=== PATIENT | female | born 1945 | race Caucasian/White ===

== ENCOUNTER → 2016-08-30 | Outpatient (REF) | payer MEDICARE, OTHER ==
[2016-08-30 10:29] LABS: MEAN CORPUSCULAR HEMOGLOBIN 31.6 pg (27.0-33.0); MEAN CORPUSCULAR HGB CONC 34.5 g/dl (32.0-36.5); MEAN CORPUSCULAR VOLUME 91.5 fl (80.0-96.0); RED CELL DISTRIBUTION WIDTH 12.1 % (11.5-14.5)
[2016-08-30 10:50] LABS: ALBUMIN 3.9 GM/DL (3.2-5.2); ALBUMIN/GLOBULIN RATIO 1.44 (1.00-1.93); ALKALINE PHOSPHATASE 95 U/L (45-117); ALT/SGPT 31 U/L (12-78); ANION GAP 7 MEQ/L (8-16); AST/SGOT 19 U/L (15-37); BILIRUBIN,TOTAL 1.3 MG/DL (0.2-1.0); BLOOD UREA NITROGEN 15 MG/DL (7-18); CALCIUM LEVEL 8.8 MG/DL (8.8-10.2); CARBON DIOXIDE LEVEL 29 MEQ/L (21-32); CHLORIDE LEVEL 107 MEQ/L (98-107); CHOLESTEROL LEVEL 168 MG/DL (<200); CREATININE FOR GFR 0.72 MG/DL (0.55-1.02); GLOMERULAR FILTRATION RATE > 60.0 (>39); GLUCOSE, FASTING 107 MG/DL (83-110); POTASSIUM SERUM 3.7 MEQ/L (3.5-5.1); SODIUM LEVEL 143 MEQ/L (136-145); TOTAL PROTEIN 6.6 GM/DL (6.4-8.2); TRIGLYCERIDES LEVEL 131 MG/DL (<150)
== END ==
LOC: M LABDRAW1 07:45
PROVIDERS: ATTEND Internal Medicine
DX: Z79.899 Other long term (current) drug therapy (principal); R73.01 Impaired fasting glucose; E78.00 Pure hypercholesterolemia, unspecified

== ENCOUNTER → 2016-10-16 | Outpatient (REF) | payer MEDICARE, OTHER ==
[~2016-10-16] MED LIST: ALPR2TAB3 PO; ESTR1TAB PO; IRBE150T12 PO; LEVE250T5 PO; RISP0.253 PO; ROZE8TAB16 PO; SERT50TA PO
== END ==
LOC: M SFHCPLAZ 15:41
PROVIDERS: ATTEND Nurse Practitioner Adult Health
DX: Z01.419 Encounter for gynecological examination (general) (routine) without abnormal findings (principal); N94.89 Other specified conditions associated with female genital organs and menstrual cycle; Z80.49 Family history of malignant neoplasm of other genital organs; Z80.0 Family history of malignant neoplasm of digestive organs
CPT/HCPCS: 88108; G0123; G0463

== ENCOUNTER → 2017-02-12 | Outpatient (REF) | payer MEDICARE, OTHER | LOC: M LAB REF 12:22 | PROVIDERS: ATTEND Surgery | DX: C44.320 Squamous cell carcinoma of skin of unspecified parts of face (principal) ==

== ENCOUNTER → 2017-09-02 | Outpatient (REF) | payer MEDICARE, OTHER ==
[2017-09-02 14:03] LABS: HEMATOCRIT 39.1 % (36.0-47.0); HEMOGLOBIN 13.4 g/dl (12.0-15.5); MEAN CORPUSCULAR HEMOGLOBIN 30.7 pg (27.0-33.0); MEAN CORPUSCULAR HGB CONC 34.3 g/dl (32.0-36.5); MEAN CORPUSCULAR VOLUME 89.5 fl (80.0-96.0); PLATELET COUNT, AUTOMATED 136 10^3/uL (150-450); RED BLOOD COUNT 4.37 10^6/uL (4.00-5.40); RED CELL DISTRIBUTION WIDTH 11.8 % (11.5-14.5); WHITE BLOOD COUNT 3.8 10^3/uL (4.0-10.0)
[2017-09-02 14:12] LABS: ALBUMIN 3.8 GM/DL (3.2-5.2); ALBUMIN/GLOBULIN RATIO 1.31 (1.00-1.93); ALKALINE PHOSPHATASE 121 U/L (45-117); ALT/SGPT 45 U/L (12-78); ANION GAP 7 MEQ/L (8-16); AST/SGOT 32 U/L (7-37); BILIRUBIN,TOTAL 0.8 MG/DL (0.2-1.0); BLOOD UREA NITROGEN 14 MG/DL (7-18); CALCIUM LEVEL 9.1 MG/DL (8.8-10.2); CARBON DIOXIDE LEVEL 26 MEQ/L (21-32); CHLORIDE LEVEL 110 MEQ/L (98-107); CHOLESTEROL LEVEL 179 MG/DL (<200); CHOLESTEROL RISK RATIO 3.033 (<5); CREATININE FOR GFR 0.68 MG/DL (0.55-1.30); GLOMERULAR FILTRATION RATE > 60.0 (>39); GLUCOSE, FASTING 133 MG/DL (70-100); HDL CHOLESTEROL 59 MG/DL (>40); NON-HDL-C 120 MG/DL; POTASSIUM SERUM 4.1 MEQ/L (3.5-5.1); SODIUM LEVEL 143 MEQ/L (136-145); TOTAL PROTEIN 6.7 GM/DL (6.4-8.2); TRIGLYCERIDES LEVEL 105 MG/DL (<150)
[2017-09-02 14:57] LABS: ESTIMATED AVERAGE GLUCOSE 128 MG/DL (60-110); HEMOGLOBIN A1c 6.1 %
== END ==
LOC: M SFHCPLAZ 07:55
DX: E78.00 Pure hypercholesterolemia, unspecified (principal); R73.01 Impaired fasting glucose
CPT/HCPCS: 80053

== ENCOUNTER 2017-10-28 14:55 | Emergency (ER) | payer MEDICARE, OTHER ==
[2017-10-28 17:26] LABS: HEMATOCRIT 38.3 % (36.0-47.0); HEMOGLOBIN 13.2 g/dl (12.0-15.5); MEAN CORPUSCULAR HEMOGLOBIN 30.7 pg (27.0-33.0); MEAN CORPUSCULAR HGB CONC 34.5 g/dl (32.0-36.5); MEAN CORPUSCULAR VOLUME 89.1 fl (80.0-96.0); PLATELET COUNT, AUTOMATED 135 10^3/uL (150-450); RED CELL DISTRIBUTION WIDTH 11.9 % (11.5-14.5)
[2017-10-28 17:53] LABS: ALBUMIN 3.9 GM/DL (3.2-5.2); ALBUMIN/GLOBULIN RATIO 1.56 (1.00-1.93); ALKALINE PHOSPHATASE 109 U/L (45-117); ALT/SGPT 36 U/L (12-78); ANION GAP 8 MEQ/L (8-16); AST/SGOT 20 U/L (7-37); BLOOD UREA NITROGEN 16 MG/DL (7-18); CALCIUM LEVEL 8.5 MG/DL (8.8-10.2); CARBON DIOXIDE LEVEL 26 MEQ/L (21-32); CHLORIDE LEVEL 111 MEQ/L (98-107); CK-MB VALUE MASS < 1.0 NG/ML (<3.6); CPK CREATINE PHOSPHOKINASE 75 U/L (26-192); CREATININE FOR GFR 0.67 MG/DL (0.55-1.30); GLOMERULAR FILTRATION RATE > 60.0 (>39); GLUCOSE, FASTING 91 MG/DL (70-100); MB/CK RELATIVE INDEX 1.33 (< OR =4); POTASSIUM SERUM 3.6 MEQ/L (3.5-5.1); SODIUM LEVEL 145 MEQ/L (136-145); TOTAL PROTEIN 6.4 GM/DL (6.4-8.2); TROPONIN I < 0.02 NG/ML (< 0.10)
[2017-10-31 00:09] LABS: Lyme Disease IgG/IgM Antibodie <0.91 ISR (0.00-0.90); Lyme Disease IgM Ab Quantitati <0.80 index (0.00-0.79)
== END 2017-10-28 18:16 | disposition home or self-care (01) ==
LOC: M ED 14:55
DX: R20.9 Unspecified disturbances of skin sensation (principal); R73.03 Prediabetes; E78.5 Hyperlipidemia, unspecified; J30.9 Allergic rhinitis, unspecified; Z91.041 Radiographic dye allergy status; Z88.8 Allergy status to other drugs, medicaments and biological substances; Z79.899 Other long term (current) drug therapy
CPT/HCPCS: 70450

== ENCOUNTER 2018-04-23 07:52 | Day surgery (SDC) | payer MEDICARE, OTHER ==
[~2018-04-23] VITALS: Ht 165.1 cm; Wt 74.4 kg
[~2018-04-23 07:52] MED LIST changes: +ALLE180T33 PO; +ATOR1TAB21 PO; +CALC1TAB26 PO; +CETI10TA PO; +ERYTHROMYCIN OPHTH OINT As Ordered ONE; +FLUTISP PO; +LIDOCAINE 2% W/EPIN INJ 20ML **PRES FREE As Ordered ONE; +LIDOCAINE 3.5 % 1ML OPHTH TOPICAL GEL OU ONE; +POVIDONE-IODINE 5% OPHTH PREP SOL 30ML As Ordered ONE
[2018-04-23] MEDS ORDERED: LIDOCAINE 2% INJ 100 MG/5 ML SDV (FOR ANES.) As Ordered ONE (08:23)
[2018-04-23] MEDS ORDERED: PROPOFOL 200 MG/20 ML VIAL As Ordered ONE (08:23)
[2018-04-23] MEDS ORDERED: MIDAZOLAM INJ 2 MG/2 ML VIAL (J2250) As Ordered ONE (08:24)
[2018-04-23] MEDS ORDERED: fentaNYL 100 MCG/2 ML INJECTION (J3010) As Ordered ONE (08:24)
[2018-04-23] MEDS ORDERED: MAXITROL OPHTH OINT 3.5 GM As Ordered ONE ×2 (09:41→10:29)
[2018-04-23] MEDS ORDERED: LR 1,000 ML IV SCH (10:15)
[2018-04-23] MEDS ORDERED: PERCOCET 5MG/325MG TAB PO PRN (10:15)
[2018-04-23 10:25] VITALS: BP 130/60
--- NOTE | 2018-04-30 23:17 | RO ---
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 Status post excision of lesion. PROCEDURE: Excisional biopsy of superior conjunctiva right eye. SURGEON: Anatoly Davalos Jr., DO MARINE WATER TENDER: None. ANESTHESIA: 2% lidocaine with epinephrine and sedation monitoring by anesthesia. INDICATION: Growth of melanotic lesion. SPECIMEN: Sent to pathology. ESTIMATED BLOOD LOSS: Minimal. COMPLICATIONS: None. PROCEDURE IN DETAIL: After obtaining informed consent, the patient was taken to the operating room and a time-out was performed confirming we had the correct patient and operative site. The right eye was prepped and draped in a sterile fashion. A lid speculum was introduced into the right eye. The patient was asked to look inferiorly, and an injection of lidocaine with epinephrine was performed underneath the conjunctiva. Cautery was applied 1 mm outside the lesion, which was in the superior conjunctiva. It measured 12 mm horizontally at the limbus and extended 1 cm posterior to the limbus. The lesion was excised and sent to pathology. It was too small to have frozen sections and, in addition, this was a melanotic lesion needing special stains. This was discussed with Dr. Christianson, pathology. The eye was then left with bare sclera. This will be covered by the upper lid and will heal in well and the patient will have no discomfort. We await the pathology report. The lid speculum was removed, and the patient was returned to the recovery room in excellent condition.
== END 2018-04-23 10:30 | disposition home or self-care (01) ==
LOC: M SDC 07:52
PROVIDERS: ATTEND Ophthalmology
DX: H11.131 Conjunctival pigmentations, right eye (principal); E78.00 Pure hypercholesterolemia, unspecified; R73.01 Impaired fasting glucose; M12.9 Arthropathy, unspecified; R29.898 Other symptoms and signs involving the musculoskeletal system; Z88.8 Allergy status to other drugs, medicaments and biological substances; Z91.041 Radiographic dye allergy status; Z91.048 Other nonmedicinal substance allergy status; Z78.0 Asymptomatic menopausal state; Z98.41 Cataract extraction status, right eye; Z98.42 Cataract extraction status, left eye; Z96.1 Presence of intraocular lens
CPT/HCPCS: 68100; 88305; J2250; J3010

== ENCOUNTER → 2018-09-01 | Outpatient (REF) | payer MEDICARE, OTHER ==
[~2018-09-01] MED LIST changes: -ERYTHROMYCIN OPHTH OINT As Ordered ONE; -LIDOCAINE 2% W/EPIN INJ 20ML **PRES FREE As Ordered ONE; -LIDOCAINE 3.5 % 1ML OPHTH TOPICAL GEL OU ONE; -POVIDONE-IODINE 5% OPHTH PREP SOL 30ML As Ordered ONE; +SERT-141 PO; -SERT50TA PO
[2018-09-01 12:26] LABS: HEMATOCRIT 39.8 % (36.0-47.0); HEMOGLOBIN 13.5 g/dl (12.0-15.5); MEAN CORPUSCULAR HEMOGLOBIN 30.4 pg (27.0-33.0); MEAN CORPUSCULAR HGB CONC 33.9 g/dl (32.0-36.5); MEAN CORPUSCULAR VOLUME 89.6 fl (80.0-96.0); PLATELET COUNT, AUTOMATED 159 10^3/uL (150-450); RED BLOOD COUNT 4.44 10^6/uL (4.00-5.40); WHITE BLOOD COUNT 5.5 10^3/uL (4.0-10.0)
[2018-09-01 12:45] LABS: HEMOGLOBIN A1c 6.3 %
[2018-09-01 13:06] LABS: ALBUMIN 3.7 GM/DL (3.2-5.2); ALT/SGPT 29 U/L (12-78); BLOOD UREA NITROGEN 28 MG/DL (7-18); CALCIUM LEVEL 8.5 MG/DL (8.8-10.2); CARBON DIOXIDE LEVEL 24 MEQ/L (21-32); CHLORIDE LEVEL 110 MEQ/L (98-107); CHOLESTEROL LEVEL 158 MG/DL (<200); CHOLESTEROL RISK RATIO 2.289 (<5); CREATININE FOR GFR 0.73 MG/DL (0.55-1.30); GLOMERULAR FILTRATION RATE > 60.0 (>39); GLUCOSE, FASTING 119 MG/DL (70-100); HDL CHOLESTEROL 69 MG/DL (>40); LDL CHOLESTEROL 77 MG/DL (<100); NON-HDL-C 89 MG/DL; POTASSIUM SERUM 4.1 MEQ/L (3.5-5.1); SODIUM LEVEL 141 MEQ/L (136-145); TOTAL PROTEIN 6.7 GM/DL (6.4-8.2); TRIGLYCERIDES LEVEL 60 MG/DL (<150)
== END ==
LOC: M LABDRAW1 11:35
PROVIDERS: ATTEND Internal Medicine
DX: J30.9 Allergic rhinitis, unspecified (principal); E78.00 Pure hypercholesterolemia, unspecified; R73.01 Impaired fasting glucose

== ENCOUNTER → 2019-01-06 | Outpatient (REF) | payer MEDICARE, OTHER ==
[2019-01-06 12:21] LABS: APPEARANCE, URINE CLOUDY (CLEAR); BACTERIA, URINE AUTO 2+ (NEGATIVE); BILIRUBIN, URINE AUTO NEGATIVE (NEGATIVE); BLOOD, URINE BLOOD 1+ (NEGATIVE); COLOR, URINE AMBER (YELLOW); GLUCOSE, URINE (UA) AUTO NEGATIVE (NEGATIVE); KETONE, URINE AUTO NEGATIVE (NEGATIVE); LEUKOCYTE ESTERASE, URINE AUTO 3+ (NEGATIVE); MUCUS, URINE SMALL (NEGATIVE); NITRITE, URINE AUTO POSITIVE (NEGATIVE); PROTEIN, URINE AUTO 1+ mg/dL (NEGATIVE); RBC, URINE AUTO 31 /HPF (0-3); SPECIFIC GRAVITY URINE AUTO 1.021 (1.002-1.035); SQUAMOUS EPITHELIAL CELL UR AU 8 /HPF (0-6); TRANSITIONAL EPITHELIAL AUTO <1 /HPF; UROBILINOGEN, URINE AUTO 0.2 mg/dL (0.0-2.0); WBC, URINE AUTO TNTC /HPF (0-3)
== END ==
LOC: M LAB REF 11:59
PROVIDERS: ATTEND Physician Assistant Medical
DX: N39.0 Urinary tract infection, site not specified (principal)

== ENCOUNTER → 2020-01-28 | Outpatient (REF) | payer MEDICARE, OTHER ==
[~2020-01-28] MED LIST changes: -IRBE150T12 PO; +IRBE150T7 PO
[2020-01-28 13:45] LABS: HEMATOCRIT 44.1 % (36.0-47.0); HEMOGLOBIN 14.5 g/dl (12.0-15.5); MEAN CORPUSCULAR HGB CONC 32.9 g/dl (32.0-36.5); MEAN CORPUSCULAR VOLUME 91.1 fl (80.0-96.0); PLATELET COUNT, AUTOMATED 148 10^3/uL (150-450); RED BLOOD COUNT 4.84 10^6/uL (4.00-5.40); WHITE BLOOD COUNT 4.5 10^3/uL (4.0-10.0)
[2020-01-28 14:16] LABS: ALBUMIN 4.2 GM/DL (3.2-5.2); ALT/SGPT 34 U/L (12-78); BILIRUBIN,TOTAL 1.6 MG/DL (0.2-1.0); BLOOD UREA NITROGEN 21 MG/DL (7-18); CALCIUM LEVEL 9.2 MG/DL (8.8-10.2); CARBON DIOXIDE LEVEL 28 MEQ/L (21-32); CHLORIDE LEVEL 110 MEQ/L (98-107); CHOLESTEROL LEVEL 153 MG/DL (<200); CHOLESTEROL RISK RATIO 2.508 (<5); CREATININE FOR GFR 0.68 MG/DL (0.55-1.30); GLOMERULAR FILTRATION RATE > 60.0 (>39); GLUCOSE, FASTING 115 MG/DL (70-100); HDL CHOLESTEROL 61 MG/DL (>40); LDL CHOLESTEROL 71 MG/DL (<100); NON-HDL-C 92 MG/DL; POTASSIUM SERUM 4.6 MEQ/L (3.5-5.1); SODIUM LEVEL 143 MEQ/L (136-145); TOTAL PROTEIN 7.1 GM/DL (6.4-8.2); TRIGLYCERIDES LEVEL 107 MG/DL (<150)
[2020-01-28 14:17] LABS: HEMOGLOBIN A1c 5.7 %
== END ==
LOC: M PLALAB 10:01
PROVIDERS: ATTEND Internal Medicine
DX: J30.9 Allergic rhinitis, unspecified (principal); E78.00 Pure hypercholesterolemia, unspecified; R73.01 Impaired fasting glucose

== ENCOUNTER → 2020-04-13 | Outpatient (REF) | payer MEDICARE, OTHER ==
[2020-04-13 14:03] LABS: APPEARANCE, URINE CLEAR (CLEAR); BACTERIA, URINE AUTO NEGATIVE (NEGATIVE); BILIRUBIN, URINE AUTO NEGATIVE (NEGATIVE); BLOOD, URINE BLOOD NEGATIVE (NEGATIVE); COLOR, URINE YELLOW (YELLOW); GLUCOSE, URINE (UA) AUTO NEGATIVE (NEGATIVE); KETONE, URINE AUTO NEGATIVE (NEGATIVE); LEUKOCYTE ESTERASE, URINE AUTO TRACE (NEGATIVE); MUCUS, URINE SMALL (NEGATIVE); NITRITE, URINE AUTO NEGATIVE (NEGATIVE); PROTEIN, URINE AUTO NEGATIVE (NEGATIVE); RBC, URINE AUTO 1 /HPF (0-3); SPECIFIC GRAVITY URINE AUTO 1.017 (1.002-1.035); SQUAMOUS EPITHELIAL CELL UR AU 2 /HPF (0-6); UROBILINOGEN, URINE AUTO 0.2 mg/dL (0.0-2.0); WBC, URINE AUTO 2 /HPF (0-3)
== END ==
LOC: M SFHCPLAZ 13:44
PROVIDERS: ATTEND Internal Medicine
DX: R30.0 Dysuria (principal)
CPT/HCPCS: 81001; 87086; G0463

== ENCOUNTER → 2020-05-12 | Outpatient (CLI) | payer MEDICARE, OTHER ==
--- NOTE | 2020-05-12 09:02 | REP ---
INDICATION: R30.0 DYSURIA COMPARISON: None TECHNIQUE: Real time peraza scale B-mode and color Doppler ultrasound examination using curved array transducer. FINDINGS: The bilateral kidneys are essentially normal in contour, size, echogenicity, and reniform shape without hydronephrosis, nephrolithiasis, or renal mass lesion. Intrarenal vasculature is essentially normal and symmetric. Right kidney measures 10.8 x 4.6 x 4.4 cm (RI 0.62) Left kidney measures 11.6 x 4.4 x 4.5 cm (RI 0.59) and includes 1.4 cm simple peripelvic cyst. IMPRESSION: 1. Essentially normal renal ultrasound. Incidental left renal cyst. <Electronically signed by Ac Valente > 05/12/20 [id number]
== END ==
LOC: M WHC 08:03
PROVIDERS: ATTEND Internal Medicine
DX: R30.0 Dysuria (principal)

== ENCOUNTER → 2020-11-14 | Outpatient (CLI) | payer MEDICARE, OTHER ==
[2020-11-14 11:08] LABS: BLOOD UREA NITROGEN 16 MG/DL (7-18); CREATININE FOR GFR 0.62 MG/DL (0.55-1.30); GLOMERULAR FILTRATION RATE > 60.0 (>39)
== END ==
LOC: M RAD 09:00 → M LAB 09:57
PROVIDERS: ATTEND Otolaryngology
DX: H90.3 Sensorineural hearing loss, bilateral (principal)

== ENCOUNTER → 2020-11-23 | Outpatient (CLI) | payer MEDICARE, OTHER ==
[~2020-11-23] MED LIST changes: +PROHANCE 279.3MG/ML 15ML VIAL As Ordered ONE
--- NOTE | 2020-11-23 17:00 | REPVR ---
PROCEDURE INFORMATION: Exam: MR Head Without and With Contrast; Internal Auditory Canals Exam date and time: 11/23/2020 11:24 AM Age: 75 years old Clinical indication: Tinnitus TECHNIQUE: Imaging protocol: MR of the head without and with intravenous contrast. Exam focused on the internal auditory canals. Contrast material: PROHANCE; Contrast volume: 14 ml; Contrast route: INTRAVENOUS (IV); COMPARISON: No relevant prior studies available. FINDINGS: Brain: Mild nonspecific T2/FLAIR hyperintensities of the periventricular and deep subcortical white matter, most likely secondary to chronic small vessel ischemic change. No intracranial hemorrhage or extra-axial fluid collection. No evidence of mass effect or midline shift. No restricted diffusion to suggest acute infarct. No abnormal intracranial enhancement. Normal appearance of cranial nerves on thin T2 sequences. Cerebellopontine angle cisterns are clear. Meckel's caves are clear. Internal auditory canals are clear. Ventricles: Mild prominence of the ventricles and sulci, likely attributed to parenchymal volume loss. Sinuses: Small retention cysts in the left maxillary sinus. Mastoid air cells: Unremarkable. No effusions. Bones/joints: Unremarkable. IMPRESSION: 1. No acute intracranial pathology. 2. Chronic findings, as above. Electronically signed by: Jermaine Perry On 11/23/2020 17:00:11 PM
== END ==
LOC: M RAD 09:54
PROVIDERS: ATTEND Otolaryngology
DX: H93.11 Tinnitus, right ear (principal)
CPT/HCPCS: 70553; A9576

== ENCOUNTER → 2021-02-18 | Outpatient (CLI) | payer MEDICARE, OTHER ==
[~2021-02-18] MED LIST changes: -PROHANCE 279.3MG/ML 15ML VIAL As Ordered ONE
== END ==
LOC: M LABSMTC 10:39
PROVIDERS: ATTEND Anesthesiology
DX: Z01.812 Encounter for preprocedural laboratory examination (principal); Z20.822 Contact with and (suspected) exposure to COVID-19

== ENCOUNTER 2021-02-22 11:49 | Day surgery (SDC) | payer MEDICARE, OTHER ==
[~2021-02-22] VITALS: Ht 165.1 cm; Wt 71.7 kg
[~2021-02-22 11:49] MED LIST changes: +NS 1,000 ML IV ONE
--- OUTSIDE RECORDS SUMMARY | 2021-02-22 11:55 | CCD | Continuity of Care Document ---
Author Author Izzy OLIVER MD Organization Unknown Address [address] [place] [address] Phone [phone] Care Team Providers Care General Milling Superintendent Name Role Phone Carrie Dale N.P. AUTM [phone] Rios Langley M.D. AUTM [phone] AUT[facility] Unavailable Problems Description No Information Available Social History Type Date Description Comments Sex Unknown ETOH Use Denies alcohol use Tobacco Use Start: Unknown Denies Smoking Recreational Drug Use Denies Drug Use Allergies, Adverse Reactions, Alerts Active Allergies Criticality Reaction | Severity Comments Date Iodine Unable to assess criticality 02/12/2017 Medications Active Medications SIG Qnty Indications Ordering Provide r Date Atorvastatin Calcium 20mg Tablets 1 by mouth every day Unknown Immunizations Description No Information Available Vital Signs Date Vital Result Comment 12/07/2020 7:30am Height 65 inches 5'5" Weight 162.00 lb BMI (Body Mass Index) 27.0 kg/m2 [place] Body Weight 125 lb Weight 73.483 kg BSA (Body Surface Area) 1.81 m2 11/30/2020 10:07am Height 65 inches 5'5" Weight 162.00 lb BMI (Body Mass Index) 27.0 kg/m2 [place] Body Weight 125 lb Weight 73.483 kg BSA (Body Surface Area) 1.81 m2 Results Test Acquired Date Facility Test Result H/L Range Note BUN & Creatinine ([facility]) 11/14/2020 [facility] [address] [place], [place] [address] [phone] Blood Urea Nitrogen 16 mg/dL Normal 7-18 Creatinine With GFR 11/14/2020 [facility] nt Main Lab [address] [place] [address] [phone] Creatinine For GFR 0.62 mg/dL Normal 0.55-1.30 Glomerular Filtration Rate > 60.0 Normal >39 1 1 Units are mL/min/1.73 m2 Chronic Kidney Disease Staging per NKF: Stage I & II GFR >=60 Normal to Mildly Decreased Stage III GFR 30-59 Moderately Decreased Stage IV GFR 15-29 Severely Decreased Stage V GFR <15 Very Little GFR Left ESRD GFR <15 on DIRECTOR TECHNICAL Procedures Date Code Description Status 12/07/2020 97089 Office/Outpatient Established Mo d MDM 30-39 Min Completed 12/07/2020 76541 Remove Impacted Cerumen Complete d 10/11/2020 04116 Office/Outpatient New Moderate M DM 45-59 Minutes Completed 10/11/2020 99519 Remove Impacted Cerumen Complete d Medical Devices Description No Information Available Encounters Type Date Location Provider Dx Diagnosis Office Visit 12/07/2020 7:30a [facility] Lamont Oliver MD H90.3 Sensorineural hearing loss, bilateral R42 Dizziness and giddiness H93.11 Tinnitus, right ear J31.0 Chronic rhinitis Office Visit 10/11/2020 8:30a [facility] Lamont Oliver MD H90.3 Sensorineural hearing loss, bilateral H93.11 Tinnitus, right ear R42 Dizziness and giddiness H61.23 Impacted cerumen, bilateral Assessments Date Code Description Provider 12/07/2020 H90.3 Sensorineural hearing loss, davisa rahel Oliver MD 12/07/2020 R42 Dizziness and giddiness Lamont wilson MD 12/07/2020 H93.11 Tinnitus, right ear Lamont Oliver MD 12/07/2020 J31.0 Chronic rhinitis Lamont Oliver MD 10/11/2020 H90.3 Sensorineural hearing loss, davisa rahel Oliver MD 10/11/2020 H93.11 Tinnitus, right ear Lamont Oliver MD 10/11/2020 R42 Dizziness and giddiness Lamont wilson MD 10/11/2020 H61.23 Impacted cerumen, bilateral Lamotn Oliver MD Plan of Treatment Future Appointment(s):* 02/17/2021 8:00 am - Gino Hobbs II, PA-C at [facility] 12/07/2020 - Lamont Oliver MD* H90.3 Sensorineural hearing loss, bilateral * R42 Dizziness and giddiness * H93.11 Tinnitus, right ear * J31.0 Chronic rhinitis Functional Status Description No Information Available Mental Status Description No Information Available Referrals Refer to Dr Reason for Referral Status Appt Lamont Oliver MD SANITATION TECHNICIAN TINNITUS RT EAR REF F [facility] Closed 09/13/[address] [address] [phone]
--- OUTSIDE RECORDS SUMMARY | 2021-02-22 11:55 | CCD ---
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 Name Role Phone Kittson, Susanna OTOLARYNGOLOGY NURSE Unavailable Unavailable Kittson, Susanna OTOLARYNGOLOGY NURSE Unavailable Unavailable Kittson, Susanna OTOLARYNGOLOGY NURSE Unavailable Unavailable Kittson, Susanna OTOLARYNGOLOGY NURSE Unavailable Unavailable Kittson, Susanna OTOLARYNGOLOGY NURSE Unavailable Unavailable Kittson, Susanna OTOLARYNGOLOGY NURSE Unavailable Unavailable Kittson, Susanna OTOLARYNGOLOGY NURSE Unavailable Unavailable Kittson, Susanna OTOLARYNGOLOGY NURSE Unavailable Unavailable Kittson, Susanna OTOLARYNGOLOGY NURSE Unavailable Unavailable Kittson, Susanna OTOLARYNGOLOGY NURSE Unavailable Unavailable Kittson, Susanna OTOLARYNGOLOGY NURSE Unavailable Unavailable Kittson, Susanna OTOLARYNGOLOGY NURSE Unavailable Unavailable Kittson, Susanna OTOLARYNGOLOGY NURSE Unavailable Unavailable Kittson, Susanna OTOLARYNGOLOGY NURSE Unavailable Unavailable Kittson, Susanna OTOLARYNGOLOGY NURSE Unavailable Unavailable Kittson, Susanna OTOLARYNGOLOGY NURSE Unavailable Unavailable Kittson, Susanna OTOLARYNGOLOGY NURSE Unavailable Unavailable Kittson, Susanna OTOLARYNGOLOGY NURSE Unavailable Unavailable Kittson, Susanna OTOLARYNGOLOGY NURSE Unavailable Unavailable Kittson, Susanna OTOLARYNGOLOGY NURSE Unavailable Unavailable Kittson, Susanna OTOLARYNGOLOGY NURSE Unavailable Unavailable Kittson, Susanna OTOLARYNGOLOGY NURSE Unavailable Unavailable Kittson, Susanna OTOLARYNGOLOGY NURSE Unavailable Unavailable Kittson, Susanna OTOLARYNGOLOGY NURSE Unavailable Unavailable Kittson, Susanna OTOLARYNGOLOGY NURSE Unavailable Unavailable Kittson, Susanna OTOLARYNGOLOGY NURSE Unavailable Unavailable Kittson, Susanna OTOLARYNGOLOGY NURSE Unavailable Unavailable Kittson, Susanna OTOLARYNGOLOGY NURSE Unavailable Unavailable Kittson, Susanna OTOLARYNGOLOGY NURSE Unavailable Unavailable Kittson, Susanna OTOLARYNGOLOGY NURSE Unavailable Unavailable Kittson, Susanna OTOLARYNGOLOGY NURSE Unavailable Unavailable Kittson, Susanna OTOLARYNGOLOGY NURSE Unavailable Unavailable Kittson, Susanna OTOLARYNGOLOGY NURSE Unavailable Unavailable Kittson, Susnana OTOLARYNGOLOGY NURSE Unavailable Unavailable Kittson, Susanna OTOLARYNGOLOGY NURSE Unavailable Unavailable Kittson, Susanna OTOLARYNGOLOGY NURSE Unavailable Unavailable Rios Langley MD Unavailable Unavailable Rios Langley MD Unavailable Unavailable Rios Langley MD Unavailable Unavailable Rios Langley MD Unavailable Unavailable Rios Langley MD Unavailable Unavailable Rios Langley MD Unavailable Unavailable Rios Langley MD Unavailable Unavailable Rios Langley MD Unavailable Unavailable Rios Langley MD Unavailable Unavailable Rios Langley MD Unavailable Unavailable Rios Langley MD Unavailable Unavailable Rios Langley MD Unavailable Unavailable Rios Langley MD Unavailable Unavailable Rios Langley MD Unavailable Unavailable Rios Langley MD Unavailable Unavailable Rios Langley MD Unavailable Unavailable Rios Langley MD Unavailable Unavailable Rios Langley MD Unavailable Unavailable Rios Langley MD Unavailable Unavailable Rios Langley MD Unavailable Unavailable Rios Langley MD Unavailable Unavailable Rios Langley MD Unavailable Unavailable Rios Langley MD Unavailable Unavailable Rios Langley MD Unavailable Unavailable Rios Langley MD Unavailable Unavailable Rios Langley MD Unavailable Unavailable Rios Langley MD Unavailable Unavailable Rios Langley MD Unavailable Unavailable Rios Langley MD Unavailable Unavailable Rios Langley MD Unavailable Unavailable Rios Langley MD Unavailable Unavailable Rios Langley MD Unavailable Unavailable Rios Langley MD Unavailable Unavailable Rios Langley MD Unavailable Unavailable Rios Langley MD Unavailable Unavailable Rios Langley MD Unavailable Unavailable Rios Langley MD Unavailable Unavailable Rios Langley MD Unavailable Unavailable Rios Langley MD Unavailable Unavailable Rios Langley MD Unavailable Unavailable Rios Langley MD Unavailable Unavailable Rios Langley MD Unavailable Unavailable Rios Langley MD Unavailable Unavailable Rios Langley MD Unavailable Unavailable Rios Langley MD Unavailable Unavailable Rios Langley MD Unavailable Unavailable Rios Langley MD Unavailable Unavailable Rios Langley MD Unavailable Unavailable Rios Langley MD Unavailable Unavailable Rios Langley MD Unavailable Unavailable Rios Langley MD Unavailable Unavailable Rios Langley MD Unavailable Unavailable Rios Langley MD Unavailable Unavailable Rios Langley MD Unavailable Unavailable Rios Langley MD Unavailable Unavailable Rios Langley MD Unavailable Unavailable Rios Langley MD Unavailable Unavailable Rios Langley MD Unavailable Unavailable Rios Langley MD Unavailable Unavailable Rios Langley MD Unavailable Unavailable Rios Langley MD Unavailable Unavailable Rios Langley MD Unavailable Unavailable Rios Langley MD Unavailable Unavailable Riso Langley MD Unavailable Unavailable Rios Langley MD Unavailable Unavailable Rios Langley MD Unavailable Unavailable Rios Langley MD Unavailable Unavailable Rios Langley MD Unavailable Unavailable Rios Langley MD Unavailable Unavailable Rios Langley MD Unavailable Unavailable Rios Langley MD Unavailable Unavailable Rios Langley MD Unavailable Unavailable Rios Langley MD Unavailable Unavailable Rios Langley MD Unavailable Unavailable Rios Langley MD Unavailable Unavailable Rios Langley MD Unavailable Unavailable Rios Langley MD Unavailable Unavailable Rios Langley MD Unavailable Unavailable Rios Langley MD Unavailable Unavailable León OLIVER MD Unavailable Unavailable León OLIVER MD Unavailable Unavailable León OLIVER MD Unavailable Unavailable León OLIVER MD Unavailable Unavailable León OLIVER MD Unavailable Unavailable León OLIVER MD Unavailable Unavailable León OLIVER MD Unavailable Unavailable León OLIVER MD Unavailable Unavailable León OLIVER MD Unavailable Unavailable León OLIVER MD Unavailable Unavailable León OLIVER MD Unavailable Unavailable León OLIVER MD Unavailable Unavailable León OLIVER MD Unavailable Unavailable León OLIVER MD Unavailable Unavailable León OLIVER MD Unavailable Unavailable León OLIVER MD Unavailable Unavailable León OLIVER MD Unavailable Unavailable León OLIVER MD Unavailable Unavailable León OLIVER MD Unavailable Unavailable León OLIVER MD Unavailable Unavailable León OLIVER MD Unavailable Unavailable León OLIVER MD Unavailable Unavailable León OLIVER MD Unavailable Unavailable León OLIVER MD Unavailable Unavailable León OLIVER MD Unavailable Unavailable León OLIVER MD Unavailable Unavailable León OLIVER MD Unavailable Unavailable León OLIVER MD Unavailable Unavailable León OLIVER MD Unavailable Unavailable León OLIVER MD Unavailable Unavailable León OLIVER MD Unavailable Unavailable León OLIVER MD Unavailable Unavailable León OLIVER MD Unavailable Unavailable León OLIVER MD Unavailable Unavailable Re-disclosure Warning The records that you are about to access may contain information from federally-assisted alcohol or drug abuse programs. If such information is present, then the following federally mandated warning applies: This information has been disclosed to you from records protected by federal confidentiality rules (42 CFR part 2). The federal rules prohibit you from making any further disclosure of this information unless further disclosure is expressly permitted by the written consent of the person to whom it pertains or as otherwise permitted by 42 CFR part 2. A general authorization for the release of medical or other information is NOT sufficient for this purpose. The Federal rules restrict any use of the information to criminally investigate or prosecute any alcohol or drug abuse patient.The records that you are about to access may contain highly sensitive health information, the redisclosure of which is protected by Article 27-F of the [facility] Public Health law. If you continue you may have access to information: Regarding HIV / AIDS; Provided by facilities licensed or operated by the [facility] Office of Mental Health; or Provided by the [facility] Office for People With Developmental Disabilities. If such information is present, then the following [facility] mandated warning applies: This information has been disclosed to you from confidential records which are protected by state law. State law prohibits you from making any further disclosure of this information without the specific written consent of the person to whom it pertains, or as otherwise permitted by law. Any unauthorized further disclosure in violation of state law may result in a fine or fpc sentence or both. A general authorization for the release of medical or other information is NOT sufficient authorization for further disc losure. Family History Family Member Name Family Member Gender Family Member Status Date o f Status Description Data Source(s) Unknown Male Problem MEDENT ([facility] () Unknown Male Problem [facility] Unknown Female Problem [facility] ([facility] ) Encounters Encounter Providers Location Date Indications Data Source(s ) Outpatient Attender: Carrie Negrete [facility] Main Office 01/18/2021 08:00:00 AM EDT MEDENT ([facility]) Outpatient Referrer: Rios Langley MD 12/27/2020 12:00 :00 AM EDT Encounter for screening mammogram for malignant neoplasm of breast [facility] Encounter for screening mammogram for ma lignant neoplasm of breast Outpatient Attender: CARISSA Oliver/Tyler/Anish/Reind l 12/07/2020 07:30:00 AM EDT [facility] ([facility]) Outpatient Attender: CARISSA Oliver/Tyler/Anish/Reind l 10/11/2020 08:30:00 AM EDT [facility] ([facility]) [place] [address] [address] 04/19/2020 12:00:00 AM EST [facility]CW1 [facility] [place] [address] [address] 04/13/2020 12:00:00 AM EST eCW1 [facility] [place] [address] [address] 04/13/2020 12:00:00 AM EST eCW1 [facility] [place] [address] [address] 02/08/2020 12:00:00 AM EDT eCW1 ([facility] [place] [address] [address] 02/03/2020 12:00:00 AM EDT eCW1 ([facility]) Outpatient Referrer: Rios Langley MD 12/23/2019 12:00 :00 AM EDT Encounter for screening mammogram for malignant neoplasm of breast [facility] Encounter for screening mammogram for ma lignant neoplasm of breast Immunizations Vaccine Date Status Description Data Source(s) COVID-19 VACCINE Moderna 06/05/2020 12:00:00 AM EST completed [facility] Vaccine Series Complete: YESThis Data wa s Submitted to [facility] Via [email or web address]. COVID-19 VACCINE, MRNA-1273, LNP-S (MODERNA)/PF 06/05/2020 1 2:00:00 AM EST completed [facility] COVID-19 VACCINE, MRNA-1273, LNP-S (MODERNA)/PF 05/08/2020 1 2:00:00 AM EST completed [facility] COVID-19 VACCINE Moderna 05/08/2020 12:00:00 AM EST completed [facility] Vaccine Series Complete: NOThis Data was Submitted to [facility] Via [employer]. influenza, recombinant, quadrIvalent,injectable, prese rvative free 02/03/2020 02:39:00 PM EDT completed eCW1 ([facility]) influenza, recombinant, quadrIvalent,injectable, prese rvative free 02/03/2020 02:39:00 PM EDT completed eCW1 ([facility]) influenza, recombinant, quadrIvalent,injectable, prese rvative free 02/03/2020 02:39:00 PM EDT completed eCW1 ([facility]) influenza, recombinant, quadrIvalent,injectable, prese rvative free 02/03/2020 02:39:00 PM EDT completed eCW1 ([facility]) influenza, recombinant, quadrIvalent,injectable, prese rvative free 02/03/2020 02:39:00 PM EDT completed eCW1 ([facility]) Medications Medication Brand Name Start Date Product Form Dose Route Admi nistrative Instructions Pharmacy Instructions Status Indications Reaction Description Data Source(s) Fluconazole 150 MG Oral Tablet [Diflucan] Diflucan 150 MG Di flucan 150 MG 04/13/2020 12:00:00 AM EST 1.0 {tablet} active Diflucan 150 MG eCW1 ([facility]) Fluconazole 150 MG Oral Tablet [Diflucan] Diflucan 150 MG Di flucan 150 MG 04/13/2020 12:00:00 AM EST 1.0 {tablet} active Diflucan 150 MG eCW1 ([facility]) Fluconazole 150 MG Oral Tablet [Diflucan] Diflucan 150 MG Di flucan 150 MG 04/13/2020 12:00:00 AM EST 1.0 {tablet} active Diflucan 150 MG eCW1 ([facility]) Insurance Providers Payer name Policy type / Coverage type Policy ID Covered alliance party ID Covered alliance party's relationship to regalado Policy [id number] Spouse [id number] [place] Primary [id number] Self MEDICARE A [id number] Self [id number] B MEDICARE A [id number] Self [id number] [place] Medicare Primary [id number] Self [id number] [employer] (pr) Medigap Part B [id number] Medicare [place] Medicare Primary [id number] Self [id number] [employer] (pr) Medigap Part B [id number] Medicare [place] Medicare Primary [id number] Self [id number] [employer] (pr) Medigap Part B [id number] Medicare [place] Medicare Primary [id number] Self [id number] [employer] (pr) Medigap Part B [id number] [employer] (pr) Medigap Part B [id number] [id number] [place] Medicare Primary [id number] Self UMR U [id number] Spouse [id number] UMR U [id number] Spouse [id number] UMR U [id number] Spouse [id number] ANSI-Commercial [id number] ANSI-Medicare Part B [id number] ANSI-Commercial [id number] (vt) [facility] Part B [id number] Family Dependent [id number] Medicare Dme Supplies [facility] Part B [id number] Self [id number] ANSI-Commercial [id number] ANSI-Commercial [id number] ANSI-Medicare Part B [id number] R O [id number] S [id number] MEDICARE C [id number] S [id number] B [facility] [id number] HU2 [id number] [facility] [id number] HU2 [id number] [facility] [id number] HU2 [id number] Medicare Dme Supplies [facility] Part B [id number] Self [id number] [employer] (HMO) [id number] Family Dependent [id number] [employer] U [id number] Spouse [id number] MEDICARE PART A -O/P [id number] Medicare Dme Supplies Medigap Part B [id number] Self [id number] [employer] [id number] HU2 [id number] [employer] PPO O [id number] S [id number] Medicare Dme Supplies Medigap Part B [id number] Self [place] Commercial [id number] Family Dependent SELF PAY UNAVAILABLE UNAVAILA BLE [id number] B R [facility] [id number] HU2 [id number] MEDICARE [id number] SP [id number] [facility] [id number] HU [id number] [facility] [id number] HU2 [id number] [facility] (pr) Medigap Part B [id number] Family Dependent [id number] Medicare Dme Supplies Medigap Part B [id number] Self [id number] [facility] [id number] WI2 [id number] MEDICARE [id number] SP [id number] B ANSI-Commercial [id number] ANSI-Medicare Part B [id number] ANSI-Commercial [id number] ANSI-Commercial [id number] ANSI-Commercial [id number] ANSI-Medicare Part B [id number] ANSI-Commercial [id number] ANSI-Medicare Part B [id number] ANSI-Commercial [id number] Problems, Conditions, and Diagnoses Code Display Name Description Problem Type Effective Dates Data Source(s) Z12.31 Encounter for screening mammogram for ma lignant neoplasm of breast Encounter for screening mammogram for malignant neoplasm of breast Diagnosis 12/27/2020 10:30:05 AM [facility] Surgeries/Procedures Procedure Description Date Indications Data Source(s) OFFICE OUTPATIENT VISIT 25 MINUTES 01/18/2021 12:00:00 AM EDT CARLOS ([facility]) MAMMO DIGITAL SCREENING BILATERAL G0202 <td>MAMMO DIGI BRIELLE SCREENING BILATERAL G0202</td><td>Routine</td><td>12/27/2020 10:55 AM EDT</td><td> Breast cancer screening by mammogram</td><td> </td> 12/27/2020 10:55:00 AM EDT Breast cancer screening by mammogram [facility] Breast cancer screening by mammogram Remove Impacted [employer] 12/07/2020 12:00:00 AM EDT MEDENT ([facility], ) OFFICE OUTPATIENT VISIT 25 MINUTES 12/07/2020 12:00:00 AM EDT MEDENT ([facility], ) Remove Impacted [employer] 10/11/2020 12:00:00 AM EDT MEDENT ([facility], ) OFFICE OUTPATIENT NEW 45 MINUTES 10/11/2020 12:00:00 A M EDT MEDENT ([facility], ) ARTHROCENTESIS ASPIR&/INJECTION MAJOR JT/BURSA 020 12:00:00 AM EDT MEDENT ([facility] ) Results ID Date Data Source [id number] 02/18/2021 10:40:00 AM EDT [facility] Name Value Range Interpretation Code Description Data Laurie rce(s) Supporting Document(s) SARS-CoV-2 (COVID-19) RNA [Presence] in Respiratory specimen by LORENZO with probe detection Not Detected [facility] This lab was ordered by [facility] and reported by [employer] ID Date Data Source [id number] 12/27/2020 07:47:46 PM EDT [facility] MAMMO DIGITAL SCREENING BILATERAL [id number] INAL RESULTInterpreted by:Kale Quintero, MDPROCEDURE INFORMATION: Exam: MG Bilateral Screening 3D Mammography Exam date and time: 12/27/2020 10:43 AM Age: 75 years old Clinical indication: Encounter for screening mammogram for malignant neoplasm of breast; Screening exam; No personal or family HX of malignancy; Patient HX: Left benign bx; Additional info: Annual. The patient's lifetime risk of developing breast cancer is calculated at 3.5%. Recent clinical breast examination: The patient reports having a clinical breast exam within the last 12 months. TECHNIQUE: Imaging protocol: Bilateral screening tomosynthesis and 2D mammography including computer-aided detection (CAD) when performed. COMPARISON: 1. MG MAMMO DIGITAL SCREENING BILATERAL 09114 12/23/2019 10:49 AM 2. MG MAMMO DIGITAL SCREENING BILATERAL 04249 12/17/2018 12:50 PM 3. MG MAMMO DIGITAL SCREENING BILATERAL 54359 12/09/2017 10:44 AM FINDINGS: MAMMOGRAPHY: Breast composition: The breast tissue is heterogeneously dense, which may obscure small masses. Mass: None. Architectural distortion: None. Calcifications: Stable, benign-appearing calcifications are identified in both breasts. No suspicious calcifications. Asymmetric density: None. Skin thickening: None. Axillary adenopathy: Benign- appearing bilateral axillary lymph nodes are partially visualized on the MLO projections. Other findings: There is a biopsy clip in the left breast. IMPRESSION: Stable examination without mammographic evidence of malignancy. Annual mammographic screening is recommended one year on or after the date of this exam unless otherwise clinically indicated. ASSESSMENT: BI-RADS Category 2: BenignTHIS DOCUMENT HAS BEEN ELECTRONICALLY SIGNED BY KALE QUINTERO MDThis document has been electronically signed by Kale Quintero MD on 12/27/2020 7:47 PM Name Value Range Interpretation Code Description Data Laurie rce(s) Supporting Document(s) ID Date Data Source [id number] 11/14/2020 10:06:00 AM EDT [facility], ) Name Value Range Interpretation Code Description Data Laurie rce(s) Supporting Document(s) Creatinine For GFR 0.62 mg/dL 0.55-1.30 Normal (applies to non -numeric results) [facility] ([facility], ) Glomerular Filtration Rate Laboratory test result Normal (applies to non- numeric results) [facility] ([facility], ) <content>Units are mL/min/1.73 m2</content>
<content></content>
<content>Chronic Kidney Disease Staging per NKF:</content>
<content></content>
<content>Stage I & II GFR >=60 Normal to Mildly Decreased</content>
<content>Stage III GFR 30- 59 Moderately Decreased</content>
<content>Stage IV GFR 15-29 Severely Decreased</content>
<content>Stage V GFR <15 Very Little GFR Left</content>
<content>ESRD GFR <15 on DRAIN TECHNICIAN</content>
<content></content> ID Date Data Source [id number] 11/14/2020 10:06:00 AM EDT [facility] ([facility], ) Name Value Range Interpretation Code Description Data Laurie rce(s) Supporting Document(s) Urea nitrogen [Mass/volume] in Serum or Plasma 16 mg/dL 7 -18 Normal (applies to non-numeric results) [facility] ([facility], ) ID Date Data Source URINE CULTURE 04/13/2020 12:00:00 AM EST eCW1 ([facility]) Name Value Range Interpretation Code Description Data Laurie rce(s) Supporting Document(s) URINE CULTURE eCW1 ([facility]) ID Date Data Source UA URINALYSIS 04/13/2020 12:00:00 AM EST eCW1 ([facility]) Name Value Range Interpretation Code Description Data Laurie rce(s) Supporting Document(s) UA URINALYSIS eCW1 ([facility]) ID Date Data Source [id number] 12/31/2019 11:27:56 AM EDT [facility] MAMMO DIGITAL SCREENING BILATERAL [id number] INAL RESULTInterpreted by:Estevan Hoffman MDBILATERAL DIGITAL MAMMOGRAM WITH COMPUTER-AIDED DETECTIONHISTORY: Screening mammography. The patient reports no history of breast cancer in a first-degree relative. Patient has history of benign left needle/core breast biopsy.[facility] RISK ASSESSMENT MODEL:5 year calculated risk: 1.6%Average patient 5 year risk: 2.2%Lifetime risk: 3.2%Average patient lifetime risk: 4.4%COMPARISON: Mammography dated 12/17/2018, 12/09/2017 and back to 2014.LAST REPORTED CLINICAL BREAST EXAM: November 2019 .TECHNIQUE: Craniocaudal and mediolateral oblique digital mammograms were obtained with tomosynthesis. Computer-aided detection was utilized.FINDINGS: There are scattered areas of fibroglandular density (category B). A biopsy clip is visualized in the left upper outer quadrant. No abnormal mass, calcification or architectural distortion is identified.There is no significant change compared to prior studies.IMPRESSION: 1. Benign mammogram. 2. No evidence for malignancy. 3. Recommend routine followup examination in one year. BI-RADS 2 - BENIGN FINDINGSThis document has been electronically signed by Javier Mcintyre MD on 12/31/2019 11:25 AM Name Value Range Interpretation Code Description Data Laurie rce(s) Supporting Document(s) Procedure Social History Code Duration Value Status Description Data Source(s ) Smoking 04/13/2020 12:00:00 AM EST Never Smoker completed Never S moker eCW1 ([facility]) Smoking 04/13/2020 12:00:00 AM EST Never Smoker completed Never S moker eCW1 ([facility]) Smoking 04/13/2020 12:00:00 AM EST Never Smoker completed Never S moker eCW1 ([facility]) Smoking 02/03/2020 12:00:00 AM EDT Never Smoker completed Never S moker eCW1 ([facility]) Smoking 02/03/2020 12:00:00 AM EDT Never Smoker completed Never S moker eCW1 ([facility]) Vital Signs ID Date Data Source UNK Name Value Range Interpretation Code Description Data Source(s) Systolic blood pressure 144 mm[Hg] 144 mm[Hg] M EDENT ([facility]) Diastolic blood pressure 83 mm[Hg] 83 mm[Hg] [facility] ([facility]) Heart rate 91 /min 91 /min [facility] ([facility]) Body weight 159.00 [lb_av] 159.00 [lb_av] HELENA T ([facility]) Body height 65 [in_i] 65 [in_i] [facility] ([facility]) 5'5" Body weight 162.00 [lb_av] 162.00 [lb_av] HELENA Powell ([facility]) Body mass index (BMI) [Ratio] 27.0 kg/m2 27.0 k g/m2 [facility] ([facility]) Anselmo body weight 125 [lb_av] 125 [lb_av] HELENA T ([facility]) Body weight 73.483 kg 73.483 kg [facility] ([facility]) Body surface area Derived from formula 1.81 m2 1.81 m2 MEDENT ([facility]) [place] body weight 125 [lb_av] 125 [lb_av] MEDEN T ([facility]) Body weight 73.483 kg 73.483 [facility] Body surface area Derived from formula 1.81 m2 1.81 m2 MEDENT ([facility]) Body height 65 [in_i] 65 [in_i] MEDENT ([facility]) 5'5" Body weight 162.00 [lb_av] 162.00 [lb_av] MEDEN T ([facility]) Body mass index (BMI) [Ratio] 27.0 kg/m2 27.0 k g/m2 [facility] ([facility]) Body height 65 [in_i] 65 [in_i] MEDENT ([facility]) 5'5" Body weight 160.00 [lb_av] 160.00 [lb_av] MEDEN T ([facility]) Body mass index (BMI) [Ratio] 26.6 kg/m2 26.6 k g/m2 [facility] ([facility]) [place] body weight 125 [lb_av] 125 [lb_av] MEDEN T ([facility]) Body weight 72.576 kg 72.576 kg [facility] ([facility]) Body surface area Derived from formula 1.80 m2 1.80 m2 MEDENT ([facility]) Body height 65 [in_i] 65 [in_i] MEDENT ([facility]) 5'5" Body weight 160.00 [lb_av] 160.00 [lb_av] MEDEN T ([facility]) Body mass index (BMI) [Ratio] 26.6 kg/m2 26.6 k g/m2 [facility]) Anselmo body weight 125 [lb_av] 125 [lb_av] MEDEN T ([facility]) Body weight 72.576 kg 72.576 kg MEDENT ([facility], ) Body surface area Derived from formula 1.80 m2 1.80 m2 [facility] ([facility], ) Body weight 161.8 [lb_av] 161.8 [lb_av] eCW1 ([facility]) Body height 65 [in_i] 65 [in_i] eCW1 ([facility]) Body mass index (BMI) [Ratio] 26.92 kg/m2 26.92 kg/m2 eCW1 ([facility]) Heart rate 77 /min 77 /min eCW1 ([facility]) Respiratory rate 18 /min 18 /min eCW1 ([facility]) Body temperature 99.3 [degF] 99.3 [degF] eCW1 ( [facility]) Systolic blood pressure 126 mm[Hg] 126 mm[Hg] e CW1 ([facility]) Diastolic blood pressure 76 mm[Hg] 76 mm[Hg] eCW1 ([facility]) Systolic blood pressure 122 mm[Hg] 122 mm[Hg] M EDENT ([facility]) Diastolic blood pressure 62 mm[Hg] 62 mm[Hg] MEDENT ([facility]) Body temperature 98.6 [degF] 98.6 [degF] MEDENT ([facility]) Body weight 162.6 [lb_av] 162.6 [lb_av] eCW1 ([facility]) Body height 65 [in_i] 65 [in_i] eCW1 ([facility]) Body mass index (BMI) [Ratio] 27.06 kg/m2 27.06 kg/m2 eCW1 ([facility]) Heart rate 74 /min 74 /min eCW1 ([facility]) Respiratory rate 18 /min 18 /min eCW1 ([facility]) Body temperature 100.0 [degF] 100.0 [degF] eCW1 ([facility]) Systolic blood pressure 122 mm[Hg] 122 mm[Hg] e CW1 ([facility]) Diastolic blood pressure 74 mm[Hg] 74 mm[Hg] eCW1 ([facility]) Patient Treatment Plan of Care Planned Activity Planned Date Details Description Data Source (s) Fluconazole 150 MG Oral Tablet [Diflucan] 04/13/2020 12:00:00 AM ES T eCW1 ([facility]) Fluconazole 150 MG Oral Tablet [Diflucan] 04/13/2020 12:00:00 AM ES T eCW1 ([facility]) Fluconazole 150 MG Oral Tablet [Diflucan] 04/13/2020 12:00:00 AM ES T eCW1 ([facility])
--- OUTSIDE RECORDS SUMMARY | 2021-02-22 11:55 | CCD | Summary of Care ---
Author Author [facility] Address Unknown Phone Unavailable Care Team Providers Care Psychiatric Secretary Name Role Phone Rios Langley MD PCP Reason for Referral * Diagnostic Radiology (Routine) Referred By Contact Referred To Contact Status Reason Specialty Diagnoses / [place] [address] [place] [address] Open Radiology Diagnoses Breast cancer screening by mammogram P rocedures Mammo Digital Screen Bilateral Electronically signed by Transcribe Orders at Reason for Visit * Diagnostic Radiology (Routine) Referred By Contact Referred To Contact Status Reason Specialty Diagnoses / [place] [address] [place] [address] Open Radiology Diagnoses Breast cancer screening by mammogram P rocedures Mammo Digital Screen Bilateral Encounter Details Care Team Description Date Type Department Breast cancer screening by laverne kamara 12/27/2020 [facility] Radiology Women's I maging Encounter [address] [place] [address] Allergies Comments Active Allergy Reactions Severity Noted Date Iodinated Diagnostic Anaphylaxis High 7 Agents documented as of this encounter (statuses as of 12/28/2020) Medications Not on filedocumented as of this encounter (statuses as of 12/28/2020) Active Problems Not on filedocumented as of this encounter (statuses as of 12/28/2020) Immunizations Name Administration Dates Next Due documented as of this encounter Social History Date Tobacco Use Types Packs/Day Years Used Never Assessed Sex Assigned at Date Recorded Not on file Date Recorded COVID-19 Exposure Response 12/27/2020 10:28 AM EDT In the last month, have you been in contact with No / Unsure someone who was confirmed or suspected to have Coronavirus / COVID-19? documented as of this encounter Last Filed Vital Signs Not on filedocumented in this encounter Plan of Treatment Health Maintenance Due Date Last Done Comments MMR Vaccines (1 of 1 - 01/07/1946 Standard series) DTaP,Tdap,and Td Vaccines 1952 (1 - Tdap) Osteoporosis Screening 2 01/07/2008 yr Pneumococcal Vaccine: 65+ 01/07/2008 Years (1 of 1 - PPSV23) Varicella Vaccines (1 of 04/13/2018 02/16/2018, 2 - 2-dose childhood 12/16/2017 series) Influenza Vaccine 01/20/2021 Zoster Vaccines Completed 02/16/2018, 12/16/2017 COVID-19 Vaccine Completed 06/05/2020, 05/08/2020 HIB Vaccines Aged Out No longer eligible based on patient's age to complete this topic Hepatitis A Vaccines Aged Out No longer eligibl e based on patient's age to complete this topic Hepatitis B Vaccines Aged Out No longer eligibl e based on patient's age to complete this topic IPV Vaccines Aged Out No longer eligible based on patient's age to complete this topic Pneumococcal Vaccine: Aged Out No longer eligib le based on patient's age to Pediatrics (0 to 5 Years) complete this topic and At-Risk Patients (6 to 64 Years) documented as of this encounter Implants Device Identifier Shelf Expiration Date Model / Serial / L ot Implanted Type Area Manufactur er 06/21/2017 [id number] [facility] Eviva [id number]. Left: Breast HO LOGIC - [id number] Implanted: Qty: 1 on 12/17/2016 by Quentin Rubio MD at [facility] INPATIENT Description:[employer] buckle shape clip documented as of this encounter Procedures Comments Procedure Name Priority Date/Time Associated Diag nosis MAMMO DIGITAL SCREENING Routine 12/27/2020 Breast cancer screening BILATERAL G0202 10:55 AM EDT by mammogram documented in this encounter Results * Mammo Digital Screen Bilateral (12/27/2020 10:55 AM EDT) Specimen Narrative Performed At [facility] PROCEDURE INFORMATION: Exam: MG Bilateral Screening 3D Mammogr aphy Exam date and time: 12/27/2020 10:43 AM Age: 75 years old Clinical indication: Encounter for scre ening mammogram for malignant neoplasm of breast; Screening exam; No personal or family HX of malignancy; Patient HX: Left benign bx; Additional info: Annual . The patient's lifetime risk of developing breast cancer is calculated at 3.5%. Recent clinical breast examination: The patient reports having a clinical breast exam within the last 12 months. TECHNIQUE: Imaging protocol: Bilateral screening t omosynthesis and 2D mammography including computer-aided detection (CAD ) when performed. COMPARISON: 1. MG MAMMO DIGITAL SCREENING BILATERAL 26789 12/23/2019 10:49 AM 2. MG MAMMO DIGITAL SCREENING BILATERAL 46971 12/17/2018 12:50 PM 3. MG MAMMO DIGITAL SCREENING BILATERAL 44638 12/09/2017 10:44 AM FINDINGS: MAMMOGRAPHY: Breast composition: The breast tissue i s heterogeneously dense, which may obscure small masses. Mass: None. Architectural distortion: None. Calcifications: Stable, benign-appearin g calcifications are identified in both breasts. No suspicious calcifications. Asymmetric density: None. Skin thickening: None. Axillary adenopathy: Benign-appearing b ilateral axillary lymph nodes are partially visualized on the MLO project ions. Other findings: There is a biopsy clip in the left breast. IMPRESSION: Stable examination without mammographic evidence of malignancy. Annual mammographic screening is recommended o ne year on or after the date of this exam unless otherwise clinically indica cedric. ASSESSMENT: BI-RADS Category 2: Benign THIS DOCUMENT HAS BEEN ELECTRONICALLY S IGNED BY KALE QUINTERO MD Procedure Note Interface, Received Via [employer] - 12/27/2020 7:47 PM EDT PROCEDURE INFORMATION: Exam: MG Bilateral Screening 3D Mammography [...] COMPARISON: 1. MG MAMMO DIGITAL SCREENING BILATERAL 54777 12/23/2019 10:49 AM 2. MG MAMMO DIGITAL SCREENING BILATERAL 90086 12/17/2018 12:50 PM 3. MG MAMMO DIGITAL SCREENING BILATERAL 13782 12/09/2017 10:44 AM FINDINGS: MAMMOGRAPHY: Breast composition: The breast tissue is heterogeneously dense, which may obscure small masses. Mass: None. Architectural distortion: None. Calcifications: Stable, benign-appearing calcifications are identified in both breasts. No suspicious calcifications. Asymmetric density: None. Skin thickening: None. Axillary adenopathy: Benign-appearing bilateral axillary lymph nodes are partially visualized on the MLO projections. Other findings: There is a biopsy clip in the left breast. IMPRESSION: Stable examination without mammographic evidence of malignancy. Annual mammographic screening is recommended one year on or after the date of this exam unless otherwise clinically indicated. ASSESSMENT: BI-RADS Category 2: Benign THIS DOCUMENT HAS BEEN ELECTRONICALLY SIGNED BY KALE QUINTERO MD Performing Organization Address City/State/ZIP Code P georgi Number [facility] [address] [place] [address] documented in this encounter Visit Diagnoses Diagnosis Breast cancer screening by mammogram documented in this encounter
--- OUTSIDE RECORDS SUMMARY | 2021-02-22 11:55 | CCD | Continuity of Care Document ---
Author Author Izzy NAVARRO F.N.P. Organization Unknown Address [address] [place] [address] Phone [phone] Care Team Providers Care Artist Color Separation Name Role Phone Rios Langley MD [facility] [phone] Problems Description No Information Available Social History Type Date Description Comments Sex Unknown ETOH Use Social Drinker Tobacco Use Start: Unknown Patient has never smoked Sun Exposure minimum amount of sun exposure Sun Exposure Has never used tanning bed Sun Exposure Has never experienced blistering from sunburns Sun Exposure Does not use sunscreen Allergies and adverse reactions Active Allergies Criticality Reaction | Severity Comments Date Iodine Unable to assess criticality 12/31/2012 Medications Active Medications SIG Qnty Indications Ordering Provide r Date Urea 40% Cream a pply to l foot every day. Please put on file. Patient will call when needs refill. 60units L8 4 Carrie Navarro, F.N.P. 08/27/2017 Lipitor Unknown Immunizations Description No Information Available Vital Signs Date Vital Result Comment 01/18/2021 8:06am BP Systolic 144 mmHg BP Diastolic 83 mmHg Heart Rate 91 /min Weight 159.00 lb 02/15/2020 2:14pm BP Systolic 122 mmHg BP Diastolic 62 mmHg Body Temperature 98.6 F Results Description No Information Available Procedures Date Code Description Status 01/18/2021 42094 Office/Outpatient Established Mo d MDM 30-39 Min Completed Medical Devices Description No Information Available Encounters Type Date Location Provider Dx Diagnosis Office Visit 01/18/2021 8:00a Main Office Carrie Navarro, F.N.P. D18.01 Hemangioma of skin and subcutaneous tissue L82.1 Other seborrheic keratosis L81.4 Other melanin hyperpigmentat ion D17.22 Benign lipomatous neoplasm o f skin, subcu of left arm D17.24 Benign lipomatous neoplasm o f skin, subcu of left leg L84 Corns and callosities L85.3 Xerosis cutis Z87.2 Personal history of diseases of the skin, subcu Z08 Encntr for follow-up exam af ter trtmt for malignant neoplasm Assessments Date Code Description Provider 01/18/2021 D18.01 Hemangioma of skin and subcutane ous tissue Carrie Navarro, F.N.P. 01/18/2021 L82.1 Other seborrheic keratosis Arlin Navarro F.N.P. 01/18/2021 L81.4 Other melanin hyperpigmentation Carrie Navarro F.N.P. 01/18/2021 D17.22 Benign lipomatous ne oplasm of skin and subcutaneous tissue of left arm Carrie Navarro F.N.P. 01/18/2021 D17.24 Benign lipomatous ne oplasm of skin and subcutaneous tissue of left leg Carrie Navarro, F.N.P. 01/18/2021 L84 Corns and callosities Carrie Navarro F.N.P. 01/18/2021 L85.3 Xerosis cutis Carrie corrales, F.N.P. 01/18/2021 Z87.2 Personal history of diseases of the skin and subcutaneous ti Carrie Navarro F.N.P. 01/18/2021 Z08 Encounter for follow-up examinat ion after completed treatmen Carrie Navarro F.N.P. Plan of Treatment Future Appointment(s):* 01/23/2022 8:45 am - Carrie Navarro F.N.P. at Main Office 01/18/2021 - Carrie Navarro F.N.P.* D18.01 Hemangioma of skin and subcutaneous tissue* Comments:* Reassurance. * L82.1 Other seborrheic keratosis* Comments:* Reassurance.Discussed seborrheic keratoses are benign warty growths on the skin that appear with age and that they are not contagious.The precise cause of Judah K's is unknown although can run in families so genes may play a role.Discussed if ever becomes irritated to call for a removal appointment. * L81.4 Other melanin hyperpigmentation* Comments:* Solar lentigines - reassurance.Discussed that solar lentignes appear from the sun that was received years ago.Sunscreen use and sun protection discussed. Literature given on how to perform monthly skin evaluations. * D17.22 Benign lipomatous neoplasm of skin and subcutaneous tissue of left arm * Comments:* Reassurance. * D17.24 Benign lipomatous neoplasm of skin and subcutaneous tissue of left leg * Comments:* Reassurance. * L84 Corns and callosities* Comments:* Chronic.Continue using Pumice stone after showering.Continue Urea 40% cream daily. Call with any problems. * L85.3 Xerosis cutis* Comments:* Mild cleansers and moisturizers. * Z87.2 Personal history of diseases of the skin and subcutaneous ti* Comments: * Continue to monitor for recurrence. * Z08 Encounter for follow-up examination after completed treatmen* Comments:* Reviewed sign and symptoms of skin cancer, including ABCDE's of melanoma.Discussed the importance of using a sunscreen with Zinc Oxide or Titanium Dioxide and to reapply every 2-3 hours.Discussed importance of avoidance of tanning beds and excessive UV exposure.Discussed the importance of monthly self skin examinations.Recommended a skin cancer screening on a yearly basis.Discussed increased risk of skin cancer due to sunburn. See above. * Follow up:* Yearly/PRN - FSC Functional Status Description No Information Available Mental Status Description No Information Available Referrals Description No Information Available"
--- OUTSIDE RECORDS SUMMARY | 2021-02-22 11:55 | CCD | Continuity of Care Document ---
Author Author Izzy OLIVER MD Organization Unknown Address [address] [facility] [address] [place] [address] Phone [phone] Care Team Providers Care Postie Name Role Phone Carrie Dale N.P. AUTM [phone] Rios Langley M.D. AUTM [phone] AUTM Unavailable Problems Description No Information Available Social History Type Date Description Comments Sex Unknown ETOH Use Denies alcohol use Tobacco Use Start: Unknown Denies Smoking Recreational Drug Use Denies Drug Use Allergies, Adverse Reactions, Alerts Active Allergies Reaction Severity Comments Date Iodine 02/12/2017 Medications Active Medications SIG Qnty Indications Ordering Provide r Date Atorvastatin Calcium 20mg Tablets 1 by mouth every day Unknown Immunizations Description No Information Available Vital Signs Date Vital Result Comment 11/30/2020 10:07am Height 65 inches 5'5" Weight 162.00 lb BMI (Body Mass Index) 27.0 kg/m2 [place] Body Weight 125 lb Weight 73.483 kg BSA (Body Surface Area) 1.81 m2 10/11/2020 8:36am Height 65 inches 5'5" Weight 160.00 lb BMI (Body Mass Index) 26.6 kg/m2 [place] Body Weight 125 lb Weight 72.576 kg BSA (Body Surface Area) 1.80 m2 Results Test Acquired Date Facility Test Result H/L Range Note BUN & Creatinine ([facility]) 11/14/2020 [facility] Main Lab [address] [place], [place] [id number] [phone] Blood Urea Nitrogen 16 mg/dL Normal 7-18 Creatinine With GFR 11/14/2020 [facility] nter Main Lab [address] [place] [address] [phone] Creatinine For GFR 0.62 mg/dL Normal 0.55-1.30 Glomerular Filtration Rate > 60.0 Normal >39 1 1 Units are mL/min/1.73 m2 Chronic Kidney Disease Staging per NKF: Stage I & II GFR >=60 Normal to Mildly Decreased Stage III GFR 30-59 Moderately Decreased Stage IV GFR 15-29 Severely Decreased Stage V GFR <15 Very Little GFR Left ESRD GFR <15 on ASSOCIATE FIELD SERVICE ENGINEER Procedures Date Code Description Status 10/11/2020 74162 Office/Outpatient New Moderate M DM 45-59 Minutes Completed 10/11/2020 30422 Remove Impacted Cerumen Complete d Medical Devices Description No Information Available Encounters Type Date Location Provider Dx Diagnosis Office Visit 10/11/2020 8:30a [facility] Lamont Oliver MD H90.3 Sensorineural hearing loss, bilateral H93.11 Tinnitus, right ear R42 Dizziness and giddiness H61.23 Impacted cerumen, bilateral Assessments Date Code Description Provider 10/11/2020 H90.3 Sensorineural hearing loss, bila teral Lamont Oliver MD 10/11/2020 H93.11 Tinnitus, right ear Lamont Oliver MD 10/11/2020 R42 Dizziness and giddiness Lamont wilson MD 10/11/2020 H61.23 Impacted cerumen, bilateral Lamont Oliver MD Plan of Treatment 10/11/2020 - Lamont Oliver MD* H90.3 Sensorineural hearing loss, bilateral * H93.11 Tinnitus, right ear* Follow up:* 4-6 wk * R42 Dizziness and giddiness * H61.23 Impacted cerumen, bilateral Functional Status Description No Information Available Mental Status Description No Information Available Referrals Refer to Reason for Referral Status Appt Lamont Lozoya MD 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
--- OUTSIDE RECORDS SUMMARY | 2021-02-22 11:55 | CCD | Continuity of Care Document ---
Author Author Izzy OLIVER MD Organization Unknown Address [address] [facility] [address] [place] [address] Phone [phone] Care Team Providers Care Foundry Molder Name Role Phone Carrie Dale N.P. AUTM [phone] Rios Langley M.D. AUTM [phone] AUTM Unavailable Problems Description No Information Available [...] lb BMI (Body Mass Index) 27.0 kg/m2 [place] Body Weight 125 lb Weight 73.483 kg BSA (Body Surface Area) 1.81 m2 11/30/2020 10:07am Height 65 inches 5'5" Weight 162.00 lb BMI (Body Mass Index) 27.0 kg/m2 [place] Body Weight 125 lb Weight 73.483 kg BSA (Body Surface Area) 1.81 m2 Results Test Acquired Date Facility Test Result H/L Range Note BUN & Creatinine ([facility]) 11/14/2020 [facility] Main Lab [address] [place], [place] [id number] [phone] Blood Urea Nitrogen 16 mg/dL Normal 7-18 Creatinine With GFR 11/14/2020 [facility] nt Main Lab [address] [place], [place] [id number] [phone] Creatinine For GFR 0.62 mg/dL Normal 0.55-1.30 Glomerular Filtration Rate > 60.0 Normal >39 1 1 Units are mL/min/1.73 m2 Chronic Kidney Disease Staging per NKF: Stage I & II GFR >=60 Normal to Mildly Decreased Stage III GFR 30-59 Moderately Decreased Stage IV GFR 15-29 Severely Decreased Stage V GFR <15 Very Little GFR Left ESRD GFR <15 on RACK MAKER Procedures Date Code Description Status 12/07/2020 29335 Office/Outpatient Established Mo d MDM 30-39 Min Completed 12/07/2020 17125 Remove Impacted Cerumen Complete d 10/11/2020 50061 Office/Outpatient New Moderate M DM 45-59 Minutes Completed 10/11/2020 75991 Remove Impacted Cerumen Complete d Medical Devices Description No Information Available Encounters Type Date Location Provider Dx Diagnosis Office Visit 12/07/2020 7:30a [facility] ENT Practice Lamont Oliver MD H90.3 Sensorineural hearing loss, bilateral R42 Dizziness and giddiness H93.11 Tinnitus, right ear J31.0 Chronic rhinitis Office Visit 10/11/2020 8:30a [facility] ENT Practice Lamont Oliver MD [...] bilateral Lamont Oliver MD Plan of Treatment No Information Available Functional Status Description No Information Available Mental Status Description No Information Available Referrals Refer to Reason for Referral Status Appt Date Lamont Oliver MD 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
[2021-02-22] MEDS ORDERED: LIDOCAINE 2% 100MG/5ML SDV (FOR ANES.) As Ordered ONE (12:42)
[2021-02-22] MEDS ORDERED: propofoL 200 MG/20 ML VIAL As Ordered ONE (12:43)
--- NOTE | 2021-02-22 13:37 | ROOR ---
Patient Name: Izzy Pierce Procedure Date: 02/22/2021 1:11 PM Date of : 1945 Age: 76 Room: [facility] Gender: Female Note Status: Finalized Procedure: Total Colonoscopy to Cecum + Cold Snare Polypectomy Indications: Colon cancer screening in patient at increased risk: Colorectal cancer in brother, Colon cancer screening in patient at increased risk: Colorectal cancer in sister Providers: David Warren MD Referring MD: Rios Langley MD Requesting Provider: Medicines: Monitored Anesthesia Care Complications: No immediate complications. Procedure: Pre-Anesthesia Assessment: - The heart rate, respiratory rate, oxygen saturations, blood pressure, adequacy of pulmonary ventilation, and response to care were monitored throughout the procedure. The Colonoscope was introduced through the anus and advanced to the cecum, identified by appendiceal orifice and ileocecal valve. The colonoscopy was performed without difficulty. The patient tolerated the procedure well. The quality of the bowel preparation was good. Findings: The perianal and digital rectal examinations were normal. Non-bleeding internal hemorrhoids were found during retroflexion. The hemorrhoids were small and Grade I (internal hemorrhoids that do not prolapse). Multiple small and large-mouthed diverticula were found in the recto-sigmoid colon, sigmoid colon and descending colon. Two sessile polyps were found in the cecum. The polyps were small in size. These polyps were removed with a cold snare. Resection and retrieval were complete. The exam was otherwise without abnormality on direct and retroflexion views. Impression: - Non-bleeding internal hemorrhoids. - Diverticulosis in the recto-sigmoid colon, in the sigmoid colon and in the descending colon. - Two small polyps in the cecum, removed with a cold snare. Resected and retrieved. - The examination was otherwise normal on direct and retroflexion views. - The exam was otherwise normal to the cecum. Recommendation: - Patient has a contact number available for emergencies. The signs and symptoms of potential delayed complications were discussed with the patient. Return to normal activities tomorrow. Written discharge instructions were provided to the patient. - High fiber diet. - Discharge patient to home. - Continue present medications. - Await pathology results. - Telephone GI clinic for pathology results in 1 week. - Repeat colonoscopy in 5 years for surveillance based on pathology results. - Return to referring physician. - The findings and recommendations were discussed with the patient. Procedure Code(s): --- Professional --- 87010, Colonoscopy, flexible; with removal of tumor(s), polyp(s), or other lesion(s) by snare technique Diagnosis Code(s): --- Professional --- K64.0, First degree hemorrhoids K63.5, Polyp of colon Z80.0, Family history of malignant neoplasm of digestive organs K57.30, Diverticulosis of large intestine without perforation or abscess without bleeding CPT copyright 2019 [employer]. All rights reserved. The codes documented in this report are preliminary and upon senior informatica developer review may be revised to meet current compliance requirements. David Warren MD David Warren MD 02/22/2021 1:36:29 PM Electronically signed by David Warren MD Number of Addenda: 0 Note Initiated On: 02/22/2021 1:11 PM Estimated Blood Loss: Estimated blood loss: none.
[2021-02-22 13:50] VITALS: BP 122/58
== END 2021-02-22 14:04 | disposition home or self-care (01) ==
LOC: M OPP 11:49
PROVIDERS: ATTEND Internal Medicine Gastroenterology
DX: Z12.11 Encounter for screening for malignant neoplasm of colon (principal); Z86.010 Personal history of colon polyps; Z80.0 Family history of malignant neoplasm of digestive organs; D12.0 Benign neoplasm of cecum; K57.30 Diverticulosis of large intestine without perforation or abscess without bleeding; K64.0 First degree hemorrhoids; Z79.899 Other long term (current) drug therapy; Z88.8 Allergy status to other drugs, medicaments and biological substances; Z91.040 Latex allergy status

== ENCOUNTER → 2021-11-10 | Outpatient (CLI) | payer MEDICARE, OTHER ==
[~2021-11-10] MED LIST changes: -NS 1,000 ML IV ONE
== END ==
LOC: M RAD 13:37
PROVIDERS: ATTEND Internal Medicine Gastroenterology
DX: R10.9 Unspecified abdominal pain (principal); R11.0 Nausea

== ENCOUNTER → 2021-12-03 | Outpatient (CLI) | payer MEDICARE, OTHER ==
[~2021-12-03] MED LIST changes: +OMEP40CA5 PO; +VITA100093 PO
== END ==
LOC: M LABSMTC 09:19
PROVIDERS: ATTEND Anesthesiology
DX: Z01.812 Encounter for preprocedural laboratory examination (principal)

== ENCOUNTER 2021-12-06 11:19 | Day surgery (SDC) | payer MEDICARE, OTHER ==
[~2021-12-06] VITALS: Ht 165.1 cm; Wt 69.9 kg
[~2021-12-06 11:19] MED LIST changes: +NS 1,000 ML IV ONE
[2021-12-06] MEDS ORDERED: propofoL 200 MG/20 ML VIAL As Ordered ONE (12:10)
[2021-12-06] MEDS ORDERED: LIDOCAINE 2% 100MG/5ML SDV (FOR ANES.) As Ordered ONE (12:10)
[2021-12-06] MEDS ORDERED: fentaNYL 100 MCG/2 ML INJECTION As Ordered ONE (12:57)
[2021-12-06 14:01] VITALS: BP 184/77
== END 2021-12-06 14:07 | disposition home or self-care (01) ==
LOC: M OPP 11:19
PROVIDERS: ATTEND Internal Medicine Gastroenterology
DX: K29.70 Gastritis, unspecified, without bleeding (principal); K31.89 Other diseases of stomach and duodenum; Z80.0 Family history of malignant neoplasm of digestive organs; Z79.02 Long term (current) use of antithrombotics/antiplatelets; Z88.8 Allergy status to other drugs, medicaments and biological substances; Z91.041 Radiographic dye allergy status; Z85.828 Personal history of other malignant neoplasm of skin
CPT/HCPCS: 43239; 88305; J3010

== ENCOUNTER 2022-09-01 15:54 | Emergency (ER) | payer MEDICARE, OTHER ==
[~2022-09-01] VITALS: Ht 165.1 cm; Wt 69.5 kg
[2022-09-01 15:54] VITALS: BP 134/60
[~2022-09-01 15:54] MED LIST changes: +FLUT50SP17 PO; -FLUTISP PO; -NS 1,000 ML IV ONE
[2022-09-01] MEDS ORDERED: NS 1,000 ML IV ONE (16:30)
[2022-09-01 16:53] LABS: BASO % 0.2 % (0.0-1.0); EOS # 0.1 10^3/uL (0.0-0.5); EOS % 1.1 % (0.0-3.0); HEMATOCRIT 39.8 % (36.0-47.0); HEMOGLOBIN 13.4 g/dl (12.0-15.5); LYMPH # 0.3 10^3/uL (1.5-5.0); LYMPH % 6.9 % (24.0-44.0); MEAN CORPUSCULAR HEMOGLOBIN 30.2 pg (27.0-33.0); MEAN CORPUSCULAR HGB CONC 33.7 g/dl (32.0-36.5); MEAN CORPUSCULAR VOLUME 89.8 fl (80.0-96.0); MONO # 0.3 10^3/uL (0.0-0.8); MONO % 6.9 % (2.0-8.0); NEUTROPHILS # 3.8 10^3/uL (1.5-8.5); NEUTROPHILS % 84.7 % (36.0-66.0); PLATELET COUNT, AUTOMATED 103 10^3/uL (150-450); RED BLOOD COUNT 4.43 10^6/uL (4.00-5.40); WHITE BLOOD COUNT 4.5 10^3/uL (4.0-10.0)
[2022-09-01] MEDS ORDERED: PIPERACILLIN/TAZOBACTAM SOD 4.5 GM in D5W MINI-BAG PLUS 50 ML IV ONE (17:10)
[2022-09-01 17:18] LABS: LIPASE 29 U/L (12-53)
[2022-09-01 17:19] LABS: AMYLASE 43 U/L (30-118)
[2022-09-01 17:20] LABS: ALBUMIN 3.7 G/DL (3.2-5.2); ALKALINE PHOSPHATASE 91 U/L (46-116); ALT/SGPT 23 U/L (7.0-40); AST/SGOT 26 U/L (<34); BILIRUBIN,DIRECT 0.6 MG/DL (<0.4); BILIRUBIN,TOTAL 1.7 MG/DL (0.3-1.2); BLOOD UREA NITROGEN 20 MG/DL (9-23); CALCIUM LEVEL 8.3 MG/DL (8.3-10.6); CARBON DIOXIDE LEVEL 24 MMOL/L (20-31); CHLORIDE LEVEL 106 MMOL/L (98-107); CREATININE FOR GFR 0.66 MG/DL (0.55-1.30); GLOMERULAR FILTRATION RATE > 60.0 (>39); GLUCOSE, FASTING 114 MG/DL (74-106); POTASSIUM SERUM 3.8 MMOL/L (3.5-5.1); SODIUM LEVEL 138 MMOL/L (136-145); TOTAL PROTEIN 5.9 G/DL (5.7-8.2)
[2022-09-01 17:26] LABS: RSV AMPLIFICATION NEGATIVE (NEGATIVE)
== END 2022-09-01 20:42 | disposition home or self-care (01) ==
LOC: M ED 15:54
DX: A08.0 Rotaviral enteritis (principal); E78.00 Pure hypercholesterolemia, unspecified; Z91.041 Radiographic dye allergy status; Z88.8 Allergy status to other drugs, medicaments and biological substances; Z79.899 Other long term (current) drug therapy

== ENCOUNTER → 2022-09-11 | Outpatient (REF) | payer MEDICARE, OTHER ==
[2022-09-11 14:52] LABS: APPEARANCE, URINE MANUAL HAZY (CLEAR); COLOR, URINE MANUAL YELLOW (YELLOW)
[2022-09-11 14:53] LABS: BILIRUBIN, URINE MANUAL NEGATIVE (NEGATIVE); BLOOD URINE MANUAL POSITIVE (NEGATIVE); GLUCOSE, URINE (UA) MANUAL NEGATIVE (NEGATIVE); KETONE, URINE MANUAL NEGATIVE (NEGATIVE); LEUKOCYTE ESTERASE, URINE MAN POSITIVE (NEGATIVE); NITRITE, URINE MANUAL NEGATIVE (NEGATIVE); PROTEIN, URINE MANUAL 1+ mg/dL (NEGATIVE); SPECIFIC GRAVITY,URINE MANUAL 1.025 (1.002-1.035); UROBILINOGEN, URINE MANUAL NORMAL (NORMAL)
[2022-09-11 14:55] LABS: HYALINE CAST, URINE NONE SEEN /lpf (0-1); SQUAMOUS EPITHELIAL CELL URINE SMALL AMOUNT /hpf (SMALL AMT); WBC, URINE 30-40 /hpf (0-3)
[2022-09-11 14:56] LABS: BACTERIA, URINE MOD AMOUNT
== END ==
LOC: M SFHCPLAZ 13:23
PROVIDERS: ATTEND Physician Assistant
DX: R35.0 Frequency of micturition (principal)

== ENCOUNTER → 2022-11-20 | Outpatient (CLI) | payer MEDICARE, OTHER | LOC: M WHC 13:02 | PROVIDERS: ATTEND Nurse Practitioner Adult Health | DX: N64.4 Mastodynia (principal) | CPT/HCPCS: 77066; G0279 ==

== ENCOUNTER 2023-07-12 03:54 | Emergency (ER) | payer MEDICARE, OTHER ==
[~2023-07-12] VITALS: Ht 160 cm; Wt 64.5 kg
[~2023-07-12 03:54] MED LIST changes: -FLUT50SP17 PO; +FLUTISP PO; +IRBE150T27 PO; -IRBE150T7 PO
[2023-07-12 06:54] LABS: BASO % 0.4 % (0.0-1.0); EOS % 0.4 % (0.0-3.0); HEMATOCRIT 38.4 % (36.0-47.0); HEMOGLOBIN 13.1 g/dl (12.0-15.5); LYMPH # 1.4 10^3/uL (1.5-5.0); LYMPH % 16.8 % (24.0-44.0); MEAN CORPUSCULAR HEMOGLOBIN 30.8 pg (27.0-33.0); MEAN CORPUSCULAR HGB CONC 34.1 g/dl (32.0-36.5); MEAN CORPUSCULAR VOLUME 90.1 fl (80.0-96.0); MONO # 0.8 10^3/uL (0.0-0.8); MONO % 9.1 % (2.0-8.0); NEUTROPHILS # 6.2 10^3/uL (1.5-8.5); NEUTROPHILS % 72.8 % (36.0-66.0); PLATELET COUNT, AUTOMATED 131 10^3/uL (150-450); RED BLOOD COUNT 4.26 10^6/uL (4.00-5.40); WHITE BLOOD COUNT 8.5 10^3/uL (4.0-10.0)
[2023-07-12 07:15] LABS: LIPASE 40 U/L (12-53)
[2023-07-12 07:18] LABS: ALBUMIN 3.8 G/DL (3.2-5.2); ALKALINE PHOSPHATASE 98 U/L (46-116); ALT/SGPT 36 U/L (7.0-40); AST/SGOT 16 U/L (<34); BILIRUBIN,DIRECT 0.5 MG/DL (<0.4); BILIRUBIN,TOTAL 1.4 MG/DL (0.3-1.2); BLOOD UREA NITROGEN 16 MG/DL (9-23); CALCIUM LEVEL 8.8 MG/DL (8.3-10.6); CARBON DIOXIDE LEVEL 30 MMOL/L (20-31); CHLORIDE LEVEL 101 MMOL/L (98-107); CK-MB VALUE MASS < 1.0 NG/ML (<3.6); CPK CREATINE PHOSPHOKINASE 31 U/L (34-145); CREATININE FOR GFR 0.59 MG/DL (0.55-1.30); GLOMERULAR FILTRATION RATE > 60.0 (>32); GLUCOSE, FASTING 128 MG/DL (74-106); MB/CK RELATIVE INDEX 3.22 (< OR =4); POTASSIUM SERUM 3.6 MMOL/L (3.5-5.1); SODIUM LEVEL 138 MMOL/L (136-145); TOTAL PROTEIN 6.1 G/DL (5.7-8.2)
[2023-07-12 08:30] VITALS: BP 132/65; O2SAT 98
[2023-07-12] MEDS ORDERED: AMOX875T2 PO (08:42)
[2023-07-12 08:44] VITALS: TEMP 98.6
[2023-07-12] MEDS: AUGMENTIN 875 MG TAB PO ONE (08:53)
[2023-07-12] MEDS: KETOROLAC 30 MG/ML 1ML VIAL IV ONE (08:54)
== END 2023-07-12 08:55 | disposition home or self-care (01) ==
LOC: M ED 03:54
DX: K57.92 Diverticulitis of intestine, part unspecified, without perforation or abscess without bleeding (principal); Z91.041 Radiographic dye allergy status; Z88.8 Allergy status to other drugs, medicaments and biological substances; Z79.899 Other long term (current) drug therapy
CPT/HCPCS: 74176; 80048; 80076; 82550; 82553; 83605; 83690; 84484; 85025; 87040; 93005; 93041; 96374; 99284; J1885

== ENCOUNTER 2023-12-21 01:39 | Emergency (ER) | payer MEDICARE, OTHER ==
[~2023-12-21 01:39] MED LIST changes: +AMOX875T2 PO
[2023-12-21 04:24] LABS: BASO % 0.3 % (0.0-1.0); HEMOGLOBIN 11.4 g/dl (12.0-15.5); LYMPH # 0.5 10^3/uL (1.5-5.0); LYMPH % 16.8 % (24.0-44.0); MEAN CORPUSCULAR HEMOGLOBIN 30.5 pg (27.0-33.0); MEAN CORPUSCULAR HGB CONC 33.5 g/dl (32.0-36.5); MEAN CORPUSCULAR VOLUME 90.9 fl (80.0-96.0); MONO # 0.3 10^3/uL (0.0-0.8); MONO % 9.1 % (2.0-8.0); NEUTROPHILS # 2.1 10^3/uL (1.5-8.5); NEUTROPHILS % 72.5 % (36.0-66.0); RED BLOOD COUNT 3.74 10^6/uL (4.00-5.40); WHITE BLOOD COUNT 2.9 10^3/uL (4.0-10.0)
[2023-12-21 04:47] LABS: ETHYL ALCOHOL (ETHANOL) 0.004 % (0.000-0.010)
[2023-12-21 04:49] LABS: ALBUMIN 3.5 G/DL (3.2-5.2); ALKALINE PHOSPHATASE 114 U/L (46-116); ALT/SGPT 34 U/L (7.0-40); AST/SGOT 40 U/L (<34); BILIRUBIN,DIRECT 0.3 MG/DL (<0.4); BILIRUBIN,TOTAL 0.8 MG/DL (0.3-1.2); BLOOD UREA NITROGEN 20 MG/DL (9-23); CALCIUM LEVEL 8.8 MG/DL (8.3-10.6); CARBON DIOXIDE LEVEL 27 MMOL/L (20-31); CHLORIDE LEVEL 109 MMOL/L (98-107); CK-MB VALUE MASS < 1.0 NG/ML (<3.6); CREATININE FOR GFR 0.67 MG/DL (0.55-1.30); GLOMERULAR FILTRATION RATE > 60.0 (>32); GLUCOSE, FASTING 100 MG/DL (74-106); POTASSIUM SERUM 4.1 MMOL/L (3.5-5.1); SALICYLATE LEVEL < 3.0 MG/DL (<30); SODIUM LEVEL 138 MMOL/L (136-145); TOTAL PROTEIN 5.7 G/DL (5.7-8.2)
[2023-12-21 04:51] LABS: THYROID STIMULATING HORMONE 2.092 uIU/ML (0.55-4.78)
[2023-12-21 04:52] LABS: CPK CREATINE PHOSPHOKINASE 51 U/L (34-145); MB/CK RELATIVE INDEX 1.96 (< OR =4)
[2023-12-21 04:53] LABS: PLATELET COUNT, AUTOMATED 82 10^3/uL (150-450)
[2023-12-21 05:04] LABS: AMPHETAMINES LEVEL URINE NEGATIVE (NEGATIVE); BARBITURATES URINE NEGATIVE (NEGATIVE); BENZODIAZEPINES URINE NEGATIVE (NEGATIVE); CANNABINOIDS URINE NEGATIVE (NEGATIVE); COCAINE METABOLITE URINE NEGATIVE (NEGATIVE); METHADONE URINE NEGATIVE (NEGATIVE); OPIATES URINE NEGATIVE (NEGATIVE); PHENCYCLIDINE URINE NEGATIVE (NEGATIVE)
[2023-12-21 07:35] VITALS: TEMP 99.8
[2023-12-21 08:15] VITALS: BP 124/61; O2SAT 98
== END 2023-12-21 08:47 | disposition home or self-care (01) ==
LOC: M ED 01:39
DX: D61.818 Other pancytopenia (principal); W06.XXXA Fall from bed, initial encounter; I44.0 Atrioventricular block, first degree; I44.4 Left anterior fascicular block; I45.10 Unspecified right bundle-branch block; I45.81 Long QT syndrome; E78.5 Hyperlipidemia, unspecified; Z91.041 Radiographic dye allergy status; Z79.2 Long term (current) use of antibiotics; Z79.899 Other long term (current) drug therapy

== ENCOUNTER → 2024-01-10 | Outpatient (CLI) | payer MEDICARE, OTHER ==
[2024-01-10 11:18] LABS: HEMOGLOBIN 12.6 g/dl (12.0-15.5); MEAN CORPUSCULAR HEMOGLOBIN 30.2 pg (27.0-33.0); MEAN CORPUSCULAR HGB CONC 33.2 g/dl (32.0-36.5); MEAN CORPUSCULAR VOLUME 91.1 fl (80.0-96.0); PLATELET COUNT, AUTOMATED 142 10^3/uL (150-450); RED BLOOD COUNT 4.17 10^6/uL (4.00-5.40); WHITE BLOOD COUNT 4.8 10^3/uL (4.0-10.0)
[2024-01-10 11:24] LABS: HEMOGLOBIN A1c 5.8 % (4.0-6.0)
[2024-01-10 11:39] LABS: CHOLESTEROL RISK RATIO 2.75 (<5); HDL CHOLESTEROL 60.2 MG/DL (>40); LDL CHOLESTEROL 83.6 MG/DL (<100); NON-HDL-C 105.8 MG/DL; PERCENT SATURATION 30.9 % (13.2-45.0)
[2024-01-10 11:40] LABS: THYROID STIMULATING HORMONE 1.831 uIU/ML (0.55-4.78); TOTAL 25(OH) VITAMIN D 48.8 NG/ML (20.0-100.0)
[2024-01-10 11:41] LABS: FERRITIN 177.8 NG/ML (7.3-270.7); FREE T4 1.2 NG/DL (0.89-1.76)
== END ==
LOC: M PLALAB 08:44
PROVIDERS: ATTEND Nurse Practitioner Adult Health
DX: D72.819 Decreased white blood cell count, unspecified (principal); E78.00 Pure hypercholesterolemia, unspecified; D50.9 Iron deficiency anemia, unspecified

== ENCOUNTER → 2024-08-13 | Outpatient (REF) | payer MEDICARE, OTHER | LOC: M LAB REF 11:31 | PROVIDERS: ATTEND Student in an Organized Health Care Education/Training Program | DX: R30.0 Dysuria (principal) ==

== ENCOUNTER 2024-11-19 07:43 | Emergency (ER) | payer MEDICARE, OTHER ==
[~2024-11-19] VITALS: Ht 165.1 cm; Wt 64.3 kg
[2024-11-19 07:52] VITALS: TEMP 97.3
[2024-11-19 08:46] LABS: KETONE, URINE AUTO RFX NEGATIVE (NEGATIVE); LEUKOCYTE ESTERASE UR AUTO RFX NEGATIVE (NEGATIVE); MUCUS, URINE RFX SMALL (NEGATIVE); NITRITE, URINE AUTO RFX NEGATIVE (NEGATIVE); RBC, URINE AUTO RFX 0 /HPF (0-3); SQUAM EPITHELIAL CELL UR AURFX 0 /HPF (0-6); WBC, URINE AUTO RFX 0 /HPF (0-3)
[2024-11-19 09:51] LABS: BASO # 0.0 10^3/uL (0.0-0.2); BASO % 0.3 % (0.0-1.0); EOS # 0.1 10^3/uL (0.0-0.5); EOS % 1.5 % (0.0-3.0); LYMPH # 1.1 10^3/uL (1.5-5.0); LYMPH % 34.7 % (24.0-44.0); MONO # 0.3 10^3/uL (0.0-0.8); MONO % 9.7 % (2.0-8.0); NEUTROPHILS # 1.8 10^3/uL (1.5-8.5); NEUTROPHILS % 53.8 % (36.0-66.0); PLATELET COUNT, AUTOMATED 120 10^3/uL (150-450)
[2024-11-19 09:55] LABS: CALCIUM LEVEL 8.5 MG/DL (8.3-10.6); CARBON DIOXIDE LEVEL 28.0 MMOL/L (20-31); CHLORIDE LEVEL 108.0 MMOL/L (98-107); CREATININE FOR GFR 0.66 MG/DL (0.55-1.30); GLOMERULAR FILTRATION RATE 88.1 (>32); POTASSIUM SERUM 4.1 MMOL/L (3.5-5.1); SODIUM LEVEL 146.0 MMOL/L (136-145)
[2024-11-19 10:00] VITALS: BP 124/54
[2024-11-19 11:13] VITALS: O2SAT 98
== END 2024-11-19 11:26 | disposition home or self-care (01) ==
LOC: M ED 07:43
DX: R31.9 Hematuria, unspecified (principal); E78.5 Hyperlipidemia, unspecified; K21.9 Gastro-esophageal reflux disease without esophagitis; Z91.041 Radiographic dye allergy status; Z79.2 Long term (current) use of antibiotics; Z79.899 Other long term (current) drug therapy

== ENCOUNTER → 2024-12-16 | Outpatient (REF) | payer MEDICARE, OTHER | LOC: M LAB REF 14:33 | PROVIDERS: ATTEND Student in an Organized Health Care Education/Training Program | DX: R30.0 Dysuria (principal) ==

== ENCOUNTER → 2025-01-28 | Outpatient (CLI) | payer MEDICARE, OTHER ==
[2025-01-28 10:25] LABS: PLATELET COUNT, AUTOMATED 157 10^3/uL (150-450)
[2025-01-28 10:57] LABS: ALT/SGPT 23.0 U/L (7.0-40); AST/SGOT 21.0 U/L (<34); CALCIUM LEVEL 9.4 MG/DL (8.3-10.6); CARBON DIOXIDE LEVEL 29.0 MMOL/L (20-31); CHLORIDE LEVEL 105.0 MMOL/L (98-107); CHOLESTEROL LEVEL 179.0 MG/DL (<200); CHOLESTEROL RISK RATIO 2.43 (<5); CREATININE FOR GFR 0.69 MG/DL (0.55-1.30); GLOMERULAR FILTRATION RATE 86.6 (>32); LDL CHOLESTEROL 88.9 MG/DL (<100); NON-HDL-C 105.5 MG/DL; POTASSIUM SERUM 4.5 MMOL/L (3.5-5.1); SODIUM LEVEL 142.0 MMOL/L (136-145); TRIGLYCERIDES LEVEL 83.0 MG/DL (<150)
[2025-01-28 11:01] LABS: FREE T4 1.42 NG/DL (0.89-1.76)
[2025-01-28 11:02] LABS: VITAMIN B12 LEVEL 362.0 PG/ML (211-911)
[2025-01-28 11:03] LABS: ESTIMATED AVERAGE GLUCOSE 108.0 MG/DL (60-110)
[2025-01-28 11:17] LABS: TOTAL 25(OH) VITAMIN D 47.5 NG/ML (20.0-100.0)
== END ==
LOC: M PLALAB 08:52
PROVIDERS: ATTEND Nurse Practitioner Adult Health
DX: Z13.21 Encounter for screening for nutritional disorder (principal); E78.00 Pure hypercholesterolemia, unspecified; R73.01 Impaired fasting glucose; Z13.29 Encounter for screening for other suspected endocrine disorder; D72.819 Decreased white blood cell count, unspecified; D50.9 Iron deficiency anemia, unspecified